=== PATIENT | male | born 1955 | race Caucasian/White ===

== ENCOUNTER 2020-12-27 15:55 | Outpatient (REF) | payer MEDICAID, SELFPAY ==
[2020-12-29 14:11] LABS: COVID-19 RT-PCR UVMMC Result Negative (Negative)
== END 2020-12-27 15:56 | disposition home or self-care (01) ==
LOC: LBN 15:55
PROVIDERS: PCP Nurse Practitioner Family; Visit Provider Physician Assistant
DX: Z20.822 Contact with and (suspected) exposure to COVID-19 (principal)
CPT/HCPCS: U0003

== ENCOUNTER 2022-01-06 01:39 | Outpatient (CLI) | payer MEDICAID, SELFPAY ==
--- OUTSIDE RECORDS SUMMARY | 2022-01-06 01:46 | XMS_ITS | Encounter Summary ---
:1955 Author Organization [facility] [place] [address] Care Team Providers Name Role Phone Theo Lopez MD Primary Care Provider Reason for Visit Reason Onset Date Comments Medication Problem 06/28/2015 Encounter Details Date Type Department Care Team Description 06/28/2015 Telephone Cardiology Bettie Tierney MD Medication Problem [facility] [place] [phone] GENERAL INTERNAL [phone] MEDICINE [place], [place] [address] (Wo rk) Social History Tobacco Use Types Packs/Day Years Used Date Passive Smoke Exposure - Never Smoker Alcohol Use Standard Drinks/Week Comments Not Asked 0 (1 standard drink = 0.6 oz pure alcoho l) Sex Assigned at Date Recorded Not on file documented as of this encounter Miscellaneous Notes Telephone Encounter - Bettie Tierney I - 06/28/2015 4:33 PM EDT Called Jose M to tell him to take loading dose (180mg) of ticagrelor tomorrow morning and then continue with 90 mg starting that evening. He agreed and expressed understanding. BETTIE TIERNEY MD Cardiology S2, Pager #[phone] 06/28/2015 documented in this encounter Plan of Treatment Not on filedocumented as of this encounter Visit Diagnoses Not on filedocumented in this encounter Care Teams Consulting Psychologist Relationship Specialty Start Date End Date Theo Lopez MD PCP - General General Internal Medicine 06/27/15 documented as of this encounter
--- OUTSIDE RECORDS SUMMARY | 2022-01-06 01:46 | XMS_ITS | Clinical Summary ---
:1955 Author Organization [place] [address] Care Team Providers Name Role Phone Unknown Primary Care Provider Unavailable Allergies No known active allergies Medications Medication Sig Dispensed Refills Start Date End Date Status aspirin 81 mg Tablet, Take 1 tablet by 30 tablet 3 06/28/2015 Active Delayed Release (E.C.) mouth daily. atorvastatin (LIPITOR) Take 1 tablet by 30 tablet 3 06/28/2015 Active 80 mg Tablet mouth every evening. lisinopril Take 1 tablet by 30 tablet 3 06/28/2015 A ctive (PRINIVIL;ZESTRIL) 10 mouth daily. mg Tablet meTOPROLOL succinate Take 1 tablet by 30 tablet 3 06/28/2015 Active (TOPROL-XL) 100 mg mouth daily. Tablet Sustained Release [address] 1 tablet 90 tablet 3 06/28/2015 Active (NITROSTAT) 0.4 mg under the tongue Tablet, Sublingual every 5 minutes as needed for Chest pain. ticagrelor (BRILINTA) Take 1 tablet by 60 tablet 3 06/28/2015 Active 90 mg Tablet mouth 2 times daily. Active Problems Problem Noted Date STEMI (ST elevation myocardial infarction) 06/26/2015 Seborrheic keratosis 08/02/2012 Solar lentigo 08/02/2012 Social History Tobacco Use Types Packs/Day Years Used Date Passive Smoke Exposure - Never Smoker Tobacco Cessation: Counseling Given: No Alcohol Use Standard Drinks/Week Comments Not Asked 0 (1 standard drink = 0.6 oz pure alcoho l) Sex Assigned at Date Recorded Not on file Last Filed Vital Signs Vital Sign Reading Time Taken Comments Blood Pressure 114/82 06/28/2015 11:30 AM EDT Pulse 74 06/28/2015 11:30 AM EDT Temperature 36.7 ??C (98.1 ??F) 06/28/2015 11:30 AM EDT Respiratory Rate 18 06/28/2015 11:30 AM EDT Oxygen Saturation 96% 06/28/2015 11:30 AM EDT Inhaled Oxygen Concentration - - Weight 105.7 kg (233 lb 0.4 oz) 06/28/2015 5:00 AM EDT Height 193 cm (6' 4) 06/26/2015 5:00 AM EDT Body Mass Index 28.36 06/26/2015 5:00 AM EDT Plan of Treatment Health Maintenance Due Date Last Done Comments Covid-19 Vaccine (#1) 1962 HIV screen 11/06/1975 Hepatitis C Screening 11/06/1975 Tdap adult 1976 Tetanus vaccine 1976 Colonoscopy 2002 Zoster vaccine (1 of 2) 11/06/2007 Advance Directive 2012 Influenza (Flu) vaccine (1 of 1 - Influenza standard 12/01/2021 series) Insurance Payer Benefit Plan / Subscriber ID Effective Dates Phone Addre ss Type Group [place] [facility] [id number] 2015-[place] [phone] [address] [place] [address] Advance Directives Latest Code Status on File Code Status Date Activated Date Inactivated Comments Full Code 06/26/2015 5:08 AM 06/28/2015 5:25 PM Does patient have capacity to make decision: Yes Care Teams Risk Management Consultant Relationship Specialty Start Date End Date Unknown PCP - General 04/02/19 None
--- OUTSIDE RECORDS SUMMARY | 2022-01-06 01:47 | XMS_ITS | Encounter Summary ---
:1955 Author Organization [facility] [place] [address] Care Team Providers Name Role Phone Yara Gomez MD Primary Care Provider Reason for Visit Auth/Cert - Closed Specialty Diagnoses / Procedures Referred By Contact Refer red To Contact Diagnoses AIRO Procedures [employer] Referral ID Status Reason Start Date Expiration Date Visits Requ ested Visits Authorized [id number] Closed 1 1 Encounter Details Date Type Department Care Team Description 06/26/2015 [facility] (STEMI) [facility] [address] [place], [place] CARDIOLOGY DEPT [address] [place], [place] [phone] [id number] Social History Tobacco Use Types Packs/Day Years Used Date Passive Smoke Exposure - Never Smoker Alcohol Use Standard Drinks/Week Comments Not Asked 0 (1 standard drink = 0.6 oz pure alcoho l) Sex Assigned at Date Recorded Not on file documented as of this encounter Medications at Time of Discharge Medication Sig Dispensed Refills Start Date End Date aspirin 81 mg Tablet, Take 1 tablet by 30 tablet 3 06/28/19 16 Delayed Release (E.C.) mouth daily. atorvastatin (LIPITOR) 80 Take 1 tablet by 30 tablet 3 06/01 mg Tablet mouth every evening. lisinopril Take 1 tablet by 30 tablet 3 06/28/2015 (PRINIVIL;ZESTRIL) 10 mg mouth daily. Tablet meTOPROLOL succinate Take 1 tablet by 30 tablet 3 6 (TOPROL-XL) 100 mg Tablet mouth daily. Sustained Release 24 hr nitroGLYcerin (NITROSTAT) Place 1 tablet under 90 tablet 3 06/28/2015 0.4 mg Tablet, Sublingual the tongue every 5 minutes as needed for Chest pain. ticagrelor (BRILINTA) 90 mg Take 1 tablet by 60 tablet 3 Tablet mouth 2 times daily. documented as of this encounter Plan of Treatment Not on filedocumented as of this encounter Visit Diagnoses Diagnosis ST elevation myocardial infarction (STEM I) of inferior wall Acute myocardial infarction of other inf erior wall, episode of care unspecified documented in this encounter Care Teams Senior Manufacturing Test Engineer Relationship Specialty Start Date End Date Yara Gomez MD PCP - General 12/31/12 06/26/[address] [place] [address] documented as of this encounter
--- OUTSIDE RECORDS SUMMARY | 2022-01-06 01:47 | XMS_ITS | Clinical Summary ---
:1955 Demographics Home Phone Preferred Language Unknown Marital Status Unknown Latter-Day Affiliation Unknown Race Unknown Ethnic Group Unknown Author Organization [facility] Address [address] [place] [address] Care Team Providers Name Role Phone Unavailable Primary Care Provider Unavailable Social History Tobacco Use Types Packs/Day Years Used Date Never Assessed Sex Assigned at Date Recorded Not on file Plan of Treatment Not on file
--- OUTSIDE RECORDS SUMMARY | 2022-01-06 01:47 | XMS_ITS | Encounter Summary ---
:1955 Demographics Home Phone Preferred Language Unknown Marital Status Unknown Adventism Affiliation Unknown Race Unknown Ethnic Group Unknown Author Organization [facility] Address [address] [place] [address] Care Team Providers Name Role Phone Unavailable Primary Care Provider Unavailable Encounter Details Date Type Department Care Team Description 12/28/2020 Lab Requisition [facility] Outr Resulting Lab, Pathology & Laboratory Provider [facility] [address] [place] [address] Social History Tobacco Use Types Packs/Day Years Used Date Never Assessed Sex Assigned at Date Recorded Not on file documented as of this encounter Plan of Treatment Not on filedocumented as of this encounter Procedures Procedure Name Priority Date/Time Associated Diagnosis Comme nts COVID-19 TEST [facility] Today 12/27/2020 15:00 LAB PCR EDT COVID-19 TESTING Routine 12/27/2020 15:00 Results for this EDT procedure are i n the results section. documented in this encounter Results COVID-19 TEST [facility] PCR (12/27/2020 15:00 EDT) Specimen Swab - Entire nasopharynx (body structur e) Performing Organization Address City/State/ZIP Code Phon e Number [facility] [address] [place] [address] SERVICES COVID-19 TESTING (12/27/2020 15:00 EDT) COVID-19 rt-PCR Negative Negative [facility] Result Comment: [facility] This test has not been FDA c leared or approved. This test has been authorized by FDA under an EUA for use by authorized laboratories. This test has been authorized only for detection of nucleic acid fro SERVICES m 2019-nCoV, not for any oth er viruses or pathogens. This test is only authorized for the duration of the declaration that circumstances exist justifying the authorization of emergency use of in vitro d iagnostic tests for detectio n and/or diagnosis of 2019-nCoV under section 564(b)(1) of Act, 21 U.S.C ?? 360bbb-3(b) (1), unless the authorization is terminated or revoked sooner. Negative results do not prec lude 2019-nCoV infection and should not be used as the sole basis for treatment or other patient management decisions. Negative results must be combined with clinical observa tions, patient history, and epidemiological informatio n. This test was developed and its performance characteristics determined by [facility]. It has not been cleared or approved by the US Food and Drug Administration. FDA does not require this test to go through premarket FDA review. This t est is used for clinical purposes. It should not be regarded as investigational or for research. This laboratory is certified under the Clinical Laboratory Improvement Amendm ents (CLIA) as qualified to perform high complexity clinical laboratory testing. This test is based on the CD C COVID-19 Emergency Use Authorization (EUA) assay, with minor modification as defined by the FDA Performed on the tab ticketbrokero 7 Pro RT-PCR System. Performing Lab [facility] SERVICES Specimen Swab Performing Organization Address City/State/ZIP Code Phon e Number [facility] [address] [place] [address] SERVICES documented in this encounter Visit Diagnoses Not on filedocumented in this encounter
--- OUTSIDE RECORDS SUMMARY | 2022-01-06 01:47 | XMS_ITS | Encounter Summary ---
:1955 Author Organization [facility] Address [facility] [place] [address] Care Team Providers Name Role Phone Yara Gomez MD Primary Care Provider Encounter Details Date Type Department Care Team Description 06/26/2015 Telephone Cardiology [place] [facility] [place] Cordova MD [facility] [place] [phone] CARDIOLOGY [phone] [place], [place] [address] (Wo rk) Social History Tobacco Use Types Packs/Day Years Used Date Passive Smoke Exposure - Never Smoker Alcohol Use Standard Drinks/Week Comments Not Asked 0 (1 standard drink = 0.6 oz pure alcoho l) Sex Assigned at Date Recorded Not on file documented as of this encounter Miscellaneous Notes Telephone Encounter - Zach Cordova - 06/26/2015 3:08 AM EDT ECGs reviewed, which KERRI in II, III, and aVR with depression in V2 indicative of inferoposterior IN.Patient has inferior Qs as well as a relatively tall R wave in V2. No RV involvement per right-sidedleads. Initial TnI elevated at 1.79. Due to evidence of late presentation, hemodynamic stability with markedly improved chest pain, and availability of rapid transport by [facility], decision to defer lytics made after discussion with Dr. Proctor. Zach Cordova MD Pager [phone] [employer]oth Mercerizing Supervisor documented in this encounter Plan of Treatment Not on filedocumented as of this encounter Visit Diagnoses Not on filedocumented in this encounter Care Teams Project Development Leader Relationship Specialty Start Date End Date Yara Gomez MD PCP - General 12/31/12 06/26/15 [address] [place] [address] documented as of this encounter
--- OUTSIDE RECORDS SUMMARY | 2022-01-06 01:47 | XMS_ITS | Encounter Summary ---
:1955 [place] [address] Care Team Providers Name Role Phone Yara Gomez MD Primary Care Provider Reason for Visit Auth/Cert - Closed Specialty Diagnoses / Procedures Referred By Contact Refer red To Contact Diagnoses STEMI (ST elevation myocardial infarction) STEMI stemi Procedures CARDIAC CATHETERIZATION Referral ID Status Reason Start Date Expiration Date Visits Requ ested Visits Authorized [id number] Closed 1 1 Encounter Details Date Type Department Care Team Description 06/26/2015 Surgery Heel Splitter Yoan Fuentes CARDIAC CATHETERIZATION [facility] [address] [facility] [place] [address] [place] [address] [phone] (Wo rk) Social History Tobacco Use Types Packs/Day Years Used Date Passive Smoke Exposure - Never Smoker Tobacco Cessation: Counseling Given: No Alcohol Use Standard Drinks/Week Comments Not Asked 0 (1 standard drink = 0.6 oz pure alcoho l) Sex Assigned at Date Recorded Not on file documented as of this encounter Last Filed Vital Signs Vital Sign Reading [...] Mass Index 28.36 06/26/2015 5:00 AM EDT documented in this encounter Discharge Summaries Frankie Gregorio MD - 06/26/2015 12:58 PM EDT Discharge Summary Patient Name: Jose M Garibay Patient Age: 59 y.o. Language: Sierra Leonean Race: White Ethnicity: Not nor Admit date: 06/26/2015 Discharge date and time: 06/28/2015 Attending Physician: No att. providers found Discharge Physician: Frankie Gregorio MD Follow-up Recommendations for Providers: 1. Please ensure patient is taking all of his new cardiac medications, including: Aspirin, ticagrelor, atorvastatin, lisinopril, and metoprolol. 2. Please evaluate for signs of new heart failure (dyspnea, lower extremity edema, etc.) 3. Please follow up on impaired fasting glucose (hemoglobin A1c of 5.7%). Inpatient Provider Contact Information: For questions regarding this document or issues relating to this hospitalization on the Medical Service, please contact your inpatient physician through the [facility] [employer] . Issues after hours and on weekends will be handled by the Hospitalist staff on-call. Discharge Diagnoses (Hospital Problems) and Secondary Diagnoses (Chronic Problems): Active Hospital Problems Diagnosis ??? STEMI (ST elevation myocardial infarction) Resolved Hospital Problems Diagnosis Date Resolved No resolved problems to display. Active Non-Hospital Problems Diagnosis ??? Seborrheic keratosis ??? Solar lentigo Operations/Major Procedures: Cardiac Catheterization (06/26/15): Dominance: Right ?? Conclusions:? * One vessel coronary artery disease (RCA)? * Successful thrombectomy and stent insertion of the mid KELLEN Cont lesion? * Successful thrombectomy and stent insertion of the distal RCA lesion? * Drug eluting stent (LILLIAN) implanted.?? LVEDP 26 Other Major Procedures: None. History of Presentation: Extracted from H&P dated 06/26/15 59yo M with a hx of HTN (not on meds) who presents with a STEMI. He developed back pain last night at 10pm while sitting at his computer. At its worst, it was 5/10. He then developed bilateral hand numbness, 4/10 chest pain, and diaphoresis. He reports a twinge of similar back pain a week ago, but other than that, he has not had similar pain before. He called an ambulance and was taken to [facility], where an ECG showed inferior ST elevations with Q waves in lead III. His pain improved but did not totally resolve with NTG. No lytics were given, but he did get aspirin 324mg, Plavix 300mg, and heparin. He was transferred here via [facility]. In the dental laboratory technician here, he received 3 stents (2 LILLIAN, 1 BMS) to the RCA. He currently reports heartburn that is very different than his initial pain. There might still be a twinge of chest pain, too, but it is very mild, 1/10, if present at all. He denies leg pain, groin pain, dyspnea, diaphoresis, numbness, or tingling. Review of Systems (positives bold): CONSTITUTIONAL: appetite changes, fatigue, fevers, chills, weight changes ?? HEENT: visual changes, oral irritation, dysphagia RESPIRATORY: coughing, wheezing, shortness of breath CARDIOVASCULAR: chest pain now almost totally gone, exertional dyspnea, paroxysmal nocturnal dyspnea, orthopnea, palpitations, leg swelling, calf cramping GI: heartburn, abdominal pain, nausea, vomiting, diarrhea, constipation, blood in stool : dysuria, urgency, frequency, hematuria SKIN: rashes, lesions ?? MUSCULOSKELETAL: arthralgia, myalgia ?? NEURO: headaches, dizziness, lightheadedness, speech abnormalities HEMATOLOGY: easy bruising Hospital Course: Mr. Garibay was admitted to the cardiology service for management of a inferior STEMI. Cardiac catheterization revealed distal RCA occlusion. In total two drug eluding stents and one bare mental stent were placed (distal RCA and mid KELLEN continuation). An echocardiogram was notable for a preserved ejection fraction of 55%, with a wall motion abnormality in the inferior wall.. The patient recovered well; he did not develop any malignant arrhythmias or other significant complications of his PR. Jose M was treated with aspirin 81mg daily, clopidogrel 75mg daily, metoprolol succinate 100mg daily, lisinopril 10mg daily, and atorvastatin 80mg daily during his hospitalization. At the time of discharge his clopidogrel was changed to the more potent ticagrelor after we verified it would be covered by his insurance (this is to start on AM of 06/29/15 with load of ticagrelor 180mg that morning followed by90mg BID). The patient was chest pain free at the time of discharge. Vital Signs at Discharge: BP: 114/82 mmHg, Heart Rate: 74, Temp: 36.7 ??C (98.1 ??F), Resp: 18, BMI (Calculated): 28.8 Height: (!) 193 cm (6' 4) (06/26/15 0500) Weight - Scale: (!) 105.7 kg (233 lb 0.4 oz) (06/28/15 0500) Functional and Cognitive Status: At baseline. Important Studies and Lab Data: Labs: CBC: Recent Labs 06/28/15 0411 06/27/15 0336 06/26/15 0550 WBC 10.9* 10.2* 10.4* HGB 15.2 15.3 14.3 PLATELET 198 207 211 BMP: Recent Labs 06/28/15 0411 06/27/15 0336 06/26/15 0530 NA 140 140 141 K 4.2 3.9 3.6 CL 104 105 107 CO2 22 21* 19* BUN 13 11 9* CREATININE 0.99 1.00 0.85 GLUCOSE 88 -- 108 Calcium, Magnesium, Phosphate: Recent Labs 06/28/15 0411 06/27/15 0336 06/26/15 0530 CALCIUM 8.6 8.5 7.1* MAGNESIUM -- 0.85 0.64* Troponin: Recent Labs 06/27/15 0336 06/26/15 2007 06/26/15 1220 TROPONINT 2.21* 2.80* 4.52* CK 708* 1018* 1472* Studies: Cardiac Catheterization (06/26/15): Dominance: Right ?? Conclusions:? * One vessel coronary artery disease (RCA)? * Successful thrombectomy and stent insertion of the mid KELLEN Cont lesion? * Successful thrombectomy and stent insertion of the distal RCA lesion? * Drug eluting stent (LILLIAN) implanted.?? LVEDP 26 Other Major Procedures: None. Transthoracic Echocardiogram (06/26/15): SUMMARY: 1. Technically limited study despite the use of contrast. ?? 2. The left ventricular chamber size is normal. Left ventricular wall thickness is normal. There is normal global left ventricular systolic function.?? Ejection fraction is estimated to be 55%. There are left ventricular segmental wall motion abnormalities present, as shown in the diagram below. Doppler assessment is consistent with normal left sided filling pressure. ?? 3. Right ventricular chamber size, wall thickness, and systolic function are within normal limits. Pulmonary artery pressures could not be assessed due to inadequate tricuspid regurgitation jet. ?? 4. There is no hemodynamically significant valvular disease. ?? 5. See remainder of report for additional findings. EKG (06/26/15): Normal sinus rhythm. Inferior infarct with 2mm ST elevations. ?? Chest XR (06/26/15): FINDINGS: ?? Lungs remain clear. No pleural effusion. Normal size of the heart and width of the mediastinum. Mildprominence of the central pulmonary vessels is compatible with mild pulmonary vascular congestion, but no overt edema. Pending Studies and Lab Data: None. Discharge Conditions/Prognosis: Stable. Discharge to: Home. Updated Allergies/ADRs: No Known Allergies Immunizations Given this Hospitalization: There is no immunization history for the selected administration types on file for this patient. Discharge Medications: Your Medications New Medications Dose Details aspirin 81 mg Tbec Take 1 tablet by mouth daily. 81 mg Quantity: 30 tablet Refills: 3 atorvastatin 80 mg Tab Commonly known as: LIPITOR Take 1 tablet by mouth every evening. 80 mg Quantity: 30 tablet Refills: 3 lisinopril 10 mg Tab Commonly known as: PRINIVIL;ZESTRIL Take 1 tablet by mouth daily. 10 mg Quantity: 30 tablet Refills: 3 meTOPROLOL succinate 100 mg Tablet sr Commonly known as: TOPROL-XL Take 1 tablet by mouth daily. 100 mg Quantity: 30 tablet Refills: 3 nitroGLYcerin 0.4 mg Subl Commonly known as: NITROSTAT Place 1 tablet under the tongue every 5 minutes as needed for Chest pain. 0.4 mg Quantity: 90 tablet Refills: 3 ticagrelor 90 mg Tab Commonly known as: BRILINTA Take 1 tablet by mouth 2 times daily. 90 mg Quantity: 60 tablet Refills: 3 Smoking Status at Discharge: History Smoking status ??? Passive Smoke Exposure - Never Smoker Smokeless tobacco ??? Not on file Instructions Given to Patient at Discharge: Patient Instructions Why you were hospitalized: You had a heart attack. You had 3 stents placed in the vessels in your heart to keep them open. Discharge Instructions: You had a cardiac catheterization. This means that you shouldn't lift anything greater than 7 lbs for the next week and nothing greater than 20 lbs for 2 weeks. After that time you may go back to regular activity and work. Call your doctor if your right groin pain gets worse, or you develop swelling or redness in that area. Also, call your doctor if you develop sudden chest pain or shortness of breath, especially chest pain that does not go away with nitroglycerin. It is important that you take your aspirin 81mg daily forever and ticagralor 90mg twice daily for 1 year to avoid forming a blood clot in these stents, which could be deadly. New Medications: Aspirin 81mg daily Atorvastatin 80mg daily Lisinopril 10mg daily Metoprolol succinate 100mg daily Ticagrelor 90mg twice daily Medication Changes: None. Diet: Please consume a healthy diet low in cholesterol Other Instructions: You must always avoid NSAID medications (Ex: Advil, Aleve, Ibuprofen, Motrin) as these can interact with the aspirin you will be taking Call your doctor if: Chest pain, shortness of breath, pain or swelling in legs occurs, or for other concerning symptoms. Follow up Appointments: KAVON LEACH MD [phone] Future Appointments and Orders Future Orders Complete By Expires Referral to Cardiac Rehab [[id number] Custom] As directed Process Instructions: If no progress note charted, please enter Clinical details in comments. Scheduling Instructions: Questions: My question or request is: STEMI. Cardiac rehab at [facility] Cardiology Follow Up Appointment: At [facility] with Dr. Alvarez at 9:30AM on July 22 Primary Care Follow Up Appointment: June 30 at 2:00 PM Your Inpatient Doctors: Attending: Dr. Frankie Medeiros MD Fellow: Dr. Neto Robledo MD Resident: Dr. Bettie Tierney MD Shactor Helper: Dr. Jeffery De La Cruz MD General Instructions None Future Appointments and Orders Future Orders Complete By Expires Referral to Cardiac Rehab [[id number] Custom] As directed Process Instructions: If no progress note charted, please enter Clinical details in comments. Scheduling Instructions: Questions: My question or request is: STEMI. Cardiac rehab at [facility] Discharge References/Attachments None documented in this encounter Discharge Instructions Patient InstructionsJeffery De La Cruz M - 06/28/2015 11:26 AM EDT Why you were hospitalized: You had a heart attack. You had 3 stents placed in the vessels in your heart to keep them open. Discharge Instructions: You had a cardiac catheterization. This means that you shouldn't lift anything greater than 7 lbs for the next week and nothing greater than 20 lbs for 2 weeks. After that time you may go back to regular activity and work. Call your doctor if your right groin pain gets worse, or you develop swelling or redness in that area. Also, call your doctor if you develop sudden chest pain or shortness of breath, especially chest pain that does not go away with nitroglycerin. It is important that you take your aspirin 81mg daily forever and ticagralor 90mg twice daily for 1 year to avoid forming a blood clot in these stents, which could be deadly. New Medications: Aspirin 81mg daily Atorvastatin 80mg daily Lisinopril 10mg daily Metoprolol succinate 100mg daily Ticagrelor 90mg twice daily Medication Changes: None. Diet: Please consume a healthy diet low in cholesterol Other Instructions: You must always avoid NSAID medications (Ex: Advil, Aleve, Ibuprofen, Motrin) as these can interact with the aspirin you will be taking Call your doctor if: Chest pain, shortness of breath, pain or swelling in legs occurs, or for other concerning symptoms. Follow up Appointments: KAVON LEACH MD [phone] Future Appointments and Orders Future Orders Complete By Expires Referral to Cardiac Rehab [[id number] Custom] As directed Process Instructions: If no progress note charted, please enter Clinical details in comments. Scheduling Instructions: Questions: My question or request is: STEMI. Cardiac rehab at [facility] Cardiology Follow Up Appointment: At [facility] with Dr. Alvarez at 9:30AM on July 22 Primary Care Follow Up Appointment: June 30 at 2:00 PM Your Inpatient Doctors: Attending: Dr. Frankie Medeiros MD Fellow: Dr. Neto Robledo MD Resident: Dr. Bettie Tierney MD Shactor Helper: Dr. Jeffery De La Cruz MD documented in this encounter Medications at Time of Discharge [...] times daily. documented as of this encounter Progress Notes Adelaida Villanueva RN - 06/28/2015 10:43 AM EDT Office of Care Management (OCM) / Mold Maker(CM)/ Initial Assessment Discussed patient with Provider Team and in multidisciplinary discharge-planning rounds. Reviewed record and interviewed patient. Introduced/reviewed CM role and services accepted. REASON for HOSPITALIZATION: 59 y.o. male with HTN who is admitted to [facility] for management of an inferior STEMI PMH : please refer to H&P PREVIOUS FUNCTIONAL STATUS: independent with activity, cognitively intact CURRENT FUNCTIONAL STATUS: independent with activity, cognitively intact SOCIAL / FAMILY SUPPORTS: lives with his 89-year old mother who is able to help with cooking and hissister lives nearby and is very supportive; he does have 3 steps to enter his home and about 15 steps once inside ADVANCE DIRECTIVES: Encouraged him to consider completing his AD HEALTH /PRESCRIPTION COVERAGE: [place] Medicaid CURRENT HOME/COMMUNITY SERVICES/EQUIPMENT: DME: none Home Health Agency: none Other: [employer] REFERRAL: not needed at this time PRIMARY CARE PHYSICIAN: KAVON LEACH MD [facility] [address] [facility] [id number] POTENTIAL DISCHARGE NEEDS: none at this time ANTICIPATED BARRIERS TO DISCHARGE: none at this time TRANSPORTATION @ D/C: sister will drive him PLAN: CM will continue to monitor progress, follow for continuity of care and assist with discharge planning while hospitalized . Frankie Gregorio MD - 06/28/2015 6:31 AM EDT Cardiology Service Resident Progress Note Patient Name: Jose M Garibay Service: Cardiology - S1 Admit Date: 06/26/2015 Hospital Day: 1 Patient Description: Jose M Garibay is a 59 y.o. male with HTN who is admitted to [facility] for management of an inferior STEMI. Active Problems: # Inferior STEMI (s/p 2 LILLIAN, 1 BMS to the RCA) Subjective: Jose M states that he feels pretty good this morning. He does note that he saw several spots of dried blood in his underpants this morning. The patient notes that his last bowel movement was at approximately 2000 last night, which did require straining. He also also previously been told that he has hemorrhoids. Jose M does not describe any chest pain/pressure or shortness of breath this morning. Major 24 Hour Events: - No acute events Objective: Vitals: T Temp: [36.4 ??C (97.5 ??F)-36.9 ??C (98.4 ??F)] HR Heart Rate: [67-79] BP BP: (115-141)/(75-93) RR Resp: [12-25] SpO2 SpO2: [97 %-99 %] 06/25 0701 - 06/26 0700 In: 1910.5 [P.O.:1450; I.V.:460.5] Out: 1301 [Urine:1300] Wt Last (!) 105.8 kg (233 lb 4 oz) Admit 107 kg Physical Exam: GEN Very pleasant gentleman, resting in bed, alert and oriented, in NAD HEENT Conjunctiva are anicteric and without injection, oropharynx clear, moist mucus membranes CV RRR, normal S1/S2, no murmurs/rubs/gallops appreciated, radial pulses easily palpabe PULM Normal respiratory effort, clear to auscultation bilaterally, no wheezes or crackles appreciated GI Abdomen soft, non-tender, non-distended, + bowel sounds, no guarding, no rebound MSK No peripheral edema appreciated. DERM Skin warm and dry. No rashes appreciated. NEURO General/Mental Status: Alert and oriented Cranial Nerves: EOMI Labs: CBC: Recent Labs 06/27/15 0336 06/26/15 0550 WBC 10.2* 10.4* HGB 15.3 14.3 PLATELET 207 211 BMP: Recent Labs 06/27/15 0336 06/26/15 0530 NA 140 141 K 3.9 3.6 CL 105 107 CO2 21* 19* BUN 11 9* CREATININE 1.00 0.85 GLUCOSE -- 108 Calcium, Magnesium, Phosphate: Recent Labs 06/27/15 0336 06/26/15 0530 CALCIUM 8.5 7.1* MAGNESIUM 0.85 0.64* Troponin: Recent Labs 06/27/15 03306/26/15200606/26/15 1220 TROPONINT 2.21* 2.80* 4.52* CK 708* 1018* 1472* Micro: None. Radiology/Studies: EKG (06/27/15): NSR, inferior q waves and inverted T waves ?? Transthoracic Echocardiogram (06/26/15):?? 1. Technically limited study despite the use of contrast. ?? 2. The left ventricular chamber size is normal. Left ventricular wall thickness is normal. There is normal global left ventricular systolic Function. Ejection fraction is estimated to be 55%. There are left ventricular segmental wall motion abnormalities present, as shown in the diagram below. Doppler assessment is consistent with normal left sided filling pressure. ?? 3. Right ventricular chamber size, wall thickness, and systolic function are within normal limits. Pulmonary artery pressures could not be assessed due to inadequate tricuspid regurgitation jet. ?? 4. There is no hemodynamically significant valvular disease. ?? 5. See remainder of report for additional findings. Cardiac Catheterization (06/26/15): Dominance: Right ?? Conclusions:? * One vessel coronary artery disease (RCA)? * Successful thrombectomy and stent insertion of the mid KELLEN Cont lesion? * Successful thrombectomy and stent insertion of the distal RCA lesion? * Drug eluting stent (LILLIAN) implanted.?? LVEDP 26 Assessment and Plan Jose M Garibay is a 59 y.o. male with HTN who is admitted to [facility] for management of an inferiorSTEMI with 100% occlusion of the RCA. The patient is now s/p cardiac catheterization with 2 drug eluding stents and 1 bare metal stent placed in the RCA. The patient has been recovering well with no major complications. # Inferior STEMI: S/p two LILLIAN's and one BMS to the RCA. EF 55%. Recovering well. - Aspirin 81mg daily - Clopidogrel 75mg daily - Will transition from metoprolol tartrate 25mg PO q6hrs to metoprolol succinate 100mg daily - Lisinopril 10mg PO daily - Atorvastatin 5mg PO daily # Likely hemorrhoidal bleeding: The patient has previously been told that he has hemorrhoids. The drops of blood in the patient's underwear after straining are consistent with hemorrhoidal bleeding. Heis hemodynamically stable with a stable hemoglobin. - Continue to monitor # Chronic Medical Conditions: *GERD: TUMS PRN # Other: - Prophylaxis: GI: Not indicated DVT: Regular ambulation Glycemic control: Not indicated - Nutrition: Daily Healthy Menu Choices/Cardiac diet ([facility]-Diet) - Code Status: Full Code - Disposition: Possible discharge this afternoon. Patient will need outpatient cardiology follow up JEFFERY DE LA CRUZ MD 06/27/2015 Internal Medicine, PGY 1 Cardiology S1 Pager: [phone] Cardiology Staff Discharge Day Notation: I interviewed and examined the patient as part of the attending rounds process today. I personally reviewed the overnight events, medications, supplemental laboratory data and plan for discharge. The patient was updated on the acute cardiovascular problems that were addressed during the admission and the plan for follow up care. I spent >30 minutes to accomplish the above tasks. 59 yo M with HTN, prior smoking, and family history of premature CAD -- transferred from outside hospital for inferior STEMI.?? Possibly late presenting (had Q waves on initial EKG, initial troponin here was markedly elevated).?? Went directly to dental laboratory technician and had PCI to RCA (coronary angiogram films reviewed, complex case with large thrombus burden). Echocardiogram here showed normal LVEF with inferior WMA. He continues to be chest pain-free. His troponins have peaked. He has been hemodynamically stable. No concerning arrhythmias on telemetry. We have initiated GDMT for CAD in a post STEMI patient. We would like to find out if his prescription plan we'll cover the tricagrolor, in which case we might switch the Plavix to Ticagrelor prior to discharge. Possible DC later today. Full details provided in the DC summary document. FRANKIE GREGORIO MD Staff Tobacco Roller Frankie Gregorio MD - 06/27/2015 6:21 AM EDT Inpatient Cardiology Progress Note Patient: Jose M [facility] 1 day Active Problems: 59yo M with a hx of HTN (not on meds) who presented with a inferior STEMI. He received 3 stents (2 LILLIAN, 1 BMS) to the RCA. 24 hour Events/Subjective: - No acute events o/n, feeling well with no complaints - Denies F/C, N/V, DALE, CP, SOB, abd pain,D/C, pain/edema - had 2 seconds of CP o/n but resolved on its own - TTE revealing EF 55%, LVEDP 26 on cath - CXR with mild pulmonary edema Physical Examination: Vitals: Last value Range last 24 hrs Temperature Temp: 36.6 ??C (97.9 ??F) Temp: [36.4 ??C (97.5 ??F)-36.9 ??C (98.4 ??F)] Heart Rate Heart Rate: 72 Heart Rate: [67-81] Blood Pressure BP: 115/75 mmHg BP: (115-141)/(75-93) Respiratory Rate Resp: 18 Resp: [12-25] SpO2 SpO2: 97 % SpO2: [97 %-99 %] Intake/Output Summary (Last 24 hours) at 06/27/15 1410 Last data filed at 06/27/15 1156 Gross per 24 hour Intake 1510 ml Output 1826 ml Net -316 ml Patient Vitals for the past 168 hrs: Weight 06/27/15 0641 (!) 105.8 kg (233 lb 4 oz) 06/26/15 0500 (!) 107 kg (235 lb 14.3 oz) Laboratory: Recent Labs 06/27/15 0336 06/26/15 0550 WBC 10.2* 10.4* HGB 15.3 14.3 PLATELET 207 211 Recent Labs 06/27/15 0336 06/26/15 0530 NA 140 141 K 3.9 3.6 CL 105 107 CO2 21* 19* BUN 11 9* CREATININE 1.00 0.85 Recent Labs 06/27/15 0336 06/26/15 0530 CALCIUM 8.5 7.1* MAGNESIUM 0.85 0.64* Recent Labs 06/27/15 0336 06/26/15200606/26/15 1220 CK 708* 1018* 1472* TROPONINT 2.21* 2.80* 4.52* Recent Labs 06/27/15 033 HA1C 5.7* Lipid Panel Lab Results Component Value Date CHLPL 154 06/27/2015 HDL 29* 06/27/2015 CHOLHDL 5.3 06/27/2015 TRIG 111 06/27/2015 LDLDIRECT 110* 06/27/2015 Diagnostics: EKG 06/27/15: NSR, inferior q waves and inverted T waves Echo 06/26/15:?? 1. Technically limited study despite the use of contrast. ?? 2. The left ventricular chamber size is normal. Left ventricular wall thickness is normal. There is normal global left ventricular systolic Function. Ejection fraction is estimated to be 55%. There are left ventricular segmental wall motion abnormalities present, as shown in the diagram below. Doppler assessment is consistent with normal left sided filling pressure. ?? 3. Right ventricular chamber size, wall thickness, and systolic function are within normal limits. Pulmonary artery pressures could not be assessed due to inadequate tricuspid regurgitation jet. ?? 4. There is no hemodynamically significant valvular disease. ?? 5. See remainder of report for additional findings. Cardiac Catheterization (06/26/15): Dominance: Right Conclusions:? * One vessel coronary artery disease (RCA)? * Successful thrombectomy and stent insertion of the mid KELLEN Cont lesion? * Successful thrombectomy and stent insertion of the distal RCA lesion? * Drug eluting stent (LILLIAN) implanted.?? LVEDP 26 CXR (06/27/15): mild pulmonary edema MEDICATIONS: Continuous Infusions: Scheduled Meds: ??? aspirin 81 mg Oral Daily ??? clopidogrel 75 mg Oral Daily ??? atorvastatin 80 mg Oral QPM ??? lisinopril 10 mg Oral Daily ??? meTOPROLOL 25 mg Oral Q6H NATHAN PRN Meds:.nitroGLYcerin, lidocaine, calcium carbonate, acetaminophen, flu vacc (5-64 yrs) (PF) Cath: 100% occlusion of the RCA s/p 2 LILLIAN's and a BMS Assessment/Plan: 59yo M with little PMH presents with inferior STEMI with 100% occlusion of RCA. He is now s/p cath with 2 LILLIAN's and a BMS to the RCA. He is currently doing well post cath without CP, SOB, edema. CE's are trending down and post cath EKG shows resolution of APPLE. Plan: # Inferior STEMI - aspirin 81mg PO daily - Plavix 75mg PO daily, will consider switching to ticagrelor if his insurance can cover it - metoprolol 12.5mg PO q6h with hold parameters - lisinopril 5mg PO daily - atorvastatin 80mg PO daily - TTE showing EF 55% - chest pain protocol - trend troponins to peak - daily ECG - cardiac rehab Diet: cardiac Prophylaxis: will start if not ambulatory within 24 hours Access: peripheral Dispo: can transfer to floor today, likely home parisa Code = FULL BETTIE TIERNEY MD, PGY-2 Cardiology S1, Pager [phone] 06/27/2015 CARDIOLOGY STAFF ADDENDUM I have personally interviewed and examined the patient and reviewed appropriate data, including labs, ECGs and other diagnostic studies. I agree with the principal findings documented above. The assessment and plan were formulated in discussion with me. 59 yo M with HTN, prior smoking, and family history of premature CAD -- transferred from outside hospital for inferior STEMI.?? Possibly late presenting (had Q waves on initial EKG, initial troponin here was markedly elevated).?? Went directly to dental laboratory technician and had PCI to RCA (coronary angiogram films reviewed, complex case with large thrombus burden). Echocardiogram yesterday showed normal LVEF with inferior WMA. He has been chest pain-free. His troponins have peaked. We are initiating GDMT for CAD in a post STEMI patient. We would like to find out if his prescription plan we'll cover the tricagrolor, in which case we might switch the Plavix to Ticagrelor prior to discharge. Frankie Gregorio MD, [facility] Staff Tobacco Roller, Pager [phone] Genie Terry RN - 06/26/2015 11:51 PM EDT Patient complained of a 2/10 sharp fleeting chest pain that lasted 2 seconds. S1 team notified. Willcontinue to trend CE. documented in this encounter H&P Notes Frankie Gregorio MD - 06/26/2015 4:36 AM EDT Cardiology Admission Note Chief Complaint: chest pain History of Present Illness: 59yo M with a hx of HTN (not on meds) who presents with a STEMI. He developed back pain last night at 10pm while sitting at his computer. At its worst, it was 5/10. He then developed bilateral hand numbness, 4/10 chest pain, and diaphoresis. He reports a twinge of similar back pain a week ago, but other than that, he has not had similar pain before. He called an ambulance and was taken to [facility], where an ECG showed inferior ST elevations with Q waves in lead III. His pain improved but did not totally resolve with NTG. No lytics were given, but he did get aspirin 324mg, Plavix 300mg, and heparin. Hewas transferred here via [facility]. In the dental laboratory technician here, he received 3 stents (2 LILLIAN, 1 BMS) to the RCA. He currently reports heartburn that is very different than his initial pain. There might still dany twinge of chest pain, too, but it is very mild, 1/10, if present at all. He denies leg pain, groinpain, dyspnea, diaphoresis, numbness, or tingling. Review of Systems (positives bold): CONSTITUTIONAL: appetite changes, fatigue, fevers, chills, weight changes HEENT: visual changes, oral irritation, dysphagia RESPIRATORY: coughing, wheezing, shortness of breath CARDIOVASCULAR: chest pain now almost totally gone, exertional dyspnea, paroxysmal nocturnal dyspnea, orthopnea, palpitations, leg swelling, calf cramping GI: heartburn, abdominal pain, nausea, vomiting, diarrhea, constipation, blood in stool : dysuria, urgency, frequency, hematuria SKIN: rashes, lesions MUSCULOSKELETAL: arthralgia, myalgia NEURO: headaches, dizziness, lightheadedness, speech abnormalities HEMATOLOGY: easy bruising Past Medical and Surgical History: HTN Former smoker Prior To Admission Medications: None Allergies: NKDA Family History: Father had PR in his 70's. Paternal grandfather had PR in his 50's. Social History and Habits: Toño lives alone. He smoked for a few years in his early twenties. Rare alcohol. 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 Vitals: Last Set of Vitals and range of vitals over past 24 hours: Last value Range last 24 hrs Temperature Temp: 36.9 ??C (98.4 ??F) Heart Rate Heart Rate: 71 Heart Rate: [71-83] Blood Pressure BP: (!) 148/96 mmHg BP: (148-155)/(95-99) Respiratory Rate Resp: 16 Resp: [14-16] SpO2 SpO2: 97 % SpO2: [95 %-99 %] Physical Exam: GEN: NAD, lying in bed HEENT: MMM, clear OP, anicteric sclerae, no conjunctival pallor CV: regular, no MRG, no JVD LUNGS: CTAB in anterior and lateral grimm ABDOMEN: ND, normal bowel sounds, soft, NT EXT: WWP, no edema, 2+ DP pulses GROIN: clean and dry bandage in place, no hematoma, no bruit NEURO: AOx3, clear speech, CN2-12 grossly intact, no obvious focal deficit SKIN: no rashes Laboratory: [facility] labs: WBC 15.1, hgb 15.7, plts 238 Na 140, K 3.4, Cl 104, CO2 24, BUN 13, Cr 1.1, glu 119 Mag 1.9 Troponin I 1.79 INR 1.1 ECG: Initial ECG = 2mm ST elevations in inferior leads Cath: 100% occlusion of the RCA s/p 2 LILLIAN's and a BMS Official cath report pending Assessment: 59yo M with little PMH presents with an RCA STEMI. He is now s/p cath with 2 LILLIAN's and a BMS to the RCA. He is currently doing well. His heartburn may be related to the aspirin and Plavix that he received. His mild residual chest pain may be related to very small occluded branch vessels seen on cath per report from the fellow. He is hypertensive, so he needs better double product control. Plan: Admit to cardiology. # STEMI - aspirin 81mg PO daily - Plavix 75mg PO daily - metoprolol 12.5mg PO q6h with hold parameters - lisinopril 5mg PO daily - atorvastatin 80mg PO daily - TTE ordered - chest pain protocol - trend troponins to peak - daily ECG - check lipids, A1c Diet: cardiac Fluids: none Prophylaxis: will start if not ambulatory within 24 hours Access: peripheral Dispo: pending course Code = FULL TOÑO SALINAS MD 06/26/2015 Team pager: [phone] CARDIOLOGY STAFF ADDENDUM I have personally interviewed and examined the patient and reviewed appropriate data, including labs, ECGs and other diagnostic studies. I agree with the principal findings documented above. The assessment and plan were formulated in discussion with me. 59 yo M with HTN, prior smoking, and family history of premature CAD -- transferred from outside hospital for inferior STEMI. Possibly late presenting (had Q waves on initial EKG, initial troponin herewas markedly elevated). Went directly to dental laboratory technician and had PCI to RCA (coronary angiogram films reviewed, complex case with large thrombus burden). The patient is chest pain free. Will check echo and trend cardiac biomarkers until peaked. Will begin to initiate guideline directed medical therapy. Will check on insurance coverage issues Sunday -- will consider switching plavix to ticagrelor if covered. Frankie Gregorio MD, [facility] Staff Tobacco Roller, Pager [phone] Zach Cordova Gustavo - 06/26/2015 3:55 AM EDT [facility] Brief Admission Note Mr. Garibay is a 59-year-old man with hypertension, former smoker, and family history of ASCVD (on no medications) who had chest pain starting at 2200 on 06/24. The pain began gradually as upper backpain, and progressed to involve anterior chest and bilateral arms. The patient reported a similar episode 1 week ago for a couple of hours, which had not recurred until this presentation. Vitals were normal and stable with marked improvement in chest pain and no hypotension after 4 doses of SL NTG. Presenting ECG showed sinus rhythm with APPLE in II, III, and aVR, and depression in V2 indicative of inferoposterior PR. There were inferior Qs as well as a relatively tall R wave in V2. No RV involvement per right-sided leads. Initial TnI elevated at 1.79. Due to ECG and lab evidence of late presentation, hemodynamic stability with markedly improved chest pain, and availability of rapid transport by [facility], decision to defer lytics made. The patient received ASA 324 mg, UFH bolus and drip, and 300 mg Sandie vix prior to transport. Another 300 mg Plavix was given on arrival to the dental laboratory technician. On arrival, the patient had 1/10 chest pain on 15 mcg of IV NTG. Focused cardiovascular exam was unremarkable, KillipI. Angiography showed a right dominant system with a large RCA occluded at the proximal right AV continuation. This was treated with 3 stents (2.5 x 23 LILLIAN post dilated to 3.5, 3.2 x 12 LILLIAN, and 4.5 x 16 BMS post dilated to 5.0). The left system did not have obstructive disease. LVEDP elevated at 24. Perclosed. The patient remained hemodynamically and electrically stable during the procedure, but did have mild residual chest pain. Plan: -Admit to [facility] -Telemetry monitoring -Serial cardiac biomarkers -Continue aspirin and Plavix -No Lasix for now, but low threshold for diuresis, no post-cath fluids -Check fasting lipids and initiate high-intensity statin -Initiate TYREE-I as tolerated with hold parameters; would defer beta frank initiation overnight given recent inferior STEMI -Echocardiogram -Cardiac rehab consult when appropriate for the floor Please see resident H&P for full details and plan. Zach Cordova MD Pager [phone] Web Assistant documented in this encounter Miscellaneous Notes Plan of Care - Nayana Queen RN - 06/28/2015 2:44 PM EDT Problem: Cardiac Catheterization with/without PCI (Adult) Goal: Signs and symptoms of listed potential problems will be absent or manageable (reference (Cardiac Catheterization with/without PCI (Adult)) CPG) 06/28/15 1440 Cardiac Catheterization with/without PCI Problems Assessed (Cardiac Catheterization with/without PCI) all Problems Present (Cardiac Catheterization with/without PCI) none Problem: General Plan of Care Goal: Plan of Care Review 06/27/15 0432 06/28/15 0919 Plan of Care Review Plan of Care Outcome Status ongoing (interventions implemented as appropriate) -- Progress improving -- Coping/Psychosocial Response Interventions Plan of Care Reviewed with -- patient OUTCOME EVALUATION NOTE: OUTCOME SUMMARY: Alert and Oriented x4, denies chest pain or SOB. Right groin soft and non- tender. Groin care reviewed with patient including lifting restrictions and to call with pain, swelling or signs/symptoms of infection. Ambulating in [place] independently, able to climb stairs with cardiac rehab. Cleared for discharge. PLAN MOVING FORWARD: Patient discharged home with sister. AVS reviewed by Dr. De La Cruz, patient without questions at this time. INDIVIDUALIZED FALL PREVENTION: Assistance: independent Supervision: Call [place] in reach, telemetry, hourly rounding Surveillance: Intermittent. CPG GOAL OUTCOME EVALUATION: Goal: Fall Prevention-Safe Patient Handling 06/27/15 2100 06/28/15 0346 06/28/15 0919 Musculoskeletal Interventions Activity/Level of Assistance -- -- -- Positioning -- -- independent Muscle Strengthening -- activity/mobility promoted;mobility in bed promoted;sitting on edge of bed encouraged -- Self-Care Promotion -- instruction in safe use of adaptive equipment provided;independence encouraged while providing assistance;assistance provided to decrease frustration;personal routines for BADL/IADL promoted;personal/BADL objects within reach -- [place] Fall Risk History of Falling -- -- 0 Secondary Diagnosis -- -- 15 Ambulatory Aids -- -- 0 Intravenous Therapy/Heparin/Saline Lock -- -- 20 Gait/Transferring -- -- 0 Mental Status -- -- 0 Score -- -- 35 Activity and Safety Assistive Device None -- -- OTHER [place] Fall Risk -- -- Med Safety Interventions Safety Precautions/Fall Reduction -- -- environmental modification;lighting adjusted for task/safety;commode/urinal/bedpan at bedside;nonskid shoes/slippers when out of bed 06/28/15 1058 Musculoskeletal Interventions Activity/Level of Assistance ambulated Positioning -- Muscle Strengthening -- Self-Care Promotion -- [place] Fall Risk History of Falling -- Secondary Diagnosis -- Ambulatory Aids -- Intravenous Therapy/Heparin/Saline Lock -- Gait/Transferring -- Mental Status -- Score -- Activity and Safety Assistive Device -- OTHER [place] Fall Risk -- Safety Interventions Safety Precautions/Fall Reduction -- Goal: Infection Control 06/27/15 2041 06/28/15 0919 Coping/Psychosocial Response Interventions Counseling calming techniques promoted;emotional support provided;goal setting facilitated;relaxation techniques promoted -- Safety Interventions Isolation Precautions -- standard precautions maintained Infection Prevention -- bronchial hygiene promoted;environmental surveillance;hydration promoted;nutrition promoted;promote handwashing;rest/sleep promoted Goal: Discharge Needs Assessment 06/28/15 1440 Discharge Needs Assessment Concerns to be Addressed no discharge needs identified Readmission Within the Last 30 Days no previous admission in last 30 days Equipment Needed After Discharge none Living Environment Transportation Available family or friend will provide Current Health Anticipated Changes Related to Illness none Self-Care Equipment Currently Used at Home none Consult Note - Rani Jeffries RN - 06/28/2015 11:12 AM EDT Jose M Garibay was seen today by Cardiac Rehabilitation for: (no ) An activity evaluation - Patient walked 11 loops around the unit and up 26 stairs with RN supervision with no sx. (yes ) Educational packet regarding CAD, cardiac risk factors, and managing angina given to patient. Heart diagram reviewed. Given parameters for home exercise. Mediterranean diet guidelines briefly reviewed. Reviewed managing angina /use of sl nitroglycerin. (yes ) Participation to the outpatient cardiac rehabilitation program at [facility] was discussed. Patient agrees to a referral to this program. The referral will be sent at discharge and the patient should be contacted by the Program within 1- 2 weeks from discharge. Plan of Care - Brendan Paul RN - 06/28/2015 3:50 AM EDT Problem: Cardiac Catheterization with/without PCI (Adult) Goal: Signs and symptoms of listed potential problems will be absent or manageable (reference (Cardiac Catheterization with/without PCI (Adult)) CPG) Outcome: Ongoing (Interventions Implemented as Appropriate) 06/28/15 0346 Cardiac Catheterization with/without PCI Problems Assessed (Cardiac Catheterization with/without PCI) all Problems Present (Cardiac Catheterization with/without PCI) none Problem: General Plan of Care Goal: Plan of Care Review Outcome: Ongoing (Interventions Implemented as Appropriate) 06/27/15 0432 06/27/152040 Plan of Care Review Plan of Care Outcome Status ongoing (interventions implemented as appropriate) -- Progress improving -- Coping/Psychosocial Response Interventions Plan of Care Reviewed with -- patient Goal: Individualization and Mutuality Outcome: Ongoing (Interventions Implemented as Appropriate) 06/26/15 0600 06/26/15 1713 Individualization Patient Specific Goals -- transfer to regular room Mutuality/Individual Preferences What anxieties, fears or concerns do you have about your health or care? none -- What questions do you have about your health or care? none -- What information would help us give you more personalized care? none -- Goal: Fall Prevention-Safe Patient Handling Outcome: Ongoing (Interventions Implemented as Appropriate) 06/27/15 20406/27/15 2100 06/28/15 0346 Musculoskeletal Interventions Activity/Level of Assistance -- ambulated;independently -- Positioning -- independent -- Muscle Strengthening -- -- activity/mobility promoted;mobility in bed promoted;sitting on edge of bed encouraged Self-Care Promotion -- -- instruction in safe use of adaptive equipment provided;independence encouraged while providing assistance;assistance provided to decrease frustration;personal routines for BADL/IADL promoted;personal/BADL objects within reach [place]arez Fall Risk History of Falling 0 -- -- Secondary Diagnosis 15 -- -- Ambulatory Aids 0 -- -- Intravenous Therapy/Heparin/Saline Lock 20 -- -- Gait/Transferring 0 -- -- Mental Status 0 -- -- Score 35 -- -- Activity and Safety Assistive Device -- None -- OTHER [place] Fall Risk Med -- -- Safety Interventions Safety Precautions/Fall Reduction environmental modification;commode/urinal/bedpan at bedside;fall reduction program maintained;lighting adjusted for task/safety;low bed;muscle strengthening facilitated;nonskid shoes/slippers when out of bed;room near unit station -- -- Goal: Infection Control Outcome: Ongoing (Interventions Implemented as Appropriate) 06/27/15 2041 Coping/Psychosocial Response Interventions Counseling calming techniques promoted;emotional support provided;goal setting facilitated;relaxation techniques promoted Safety Interventions Isolation Precautions standard precautions maintained Infection Prevention rest/sleep promoted;promote handwashing;nutrition promoted;hydration promoted;environmental surveillance Goal: Discharge Needs Assessment Outcome: Ongoing (Interventions Implemented as Appropriate) 06/26/15 1713 Discharge Needs Assessment Concerns to be Addressed no discharge needs identified Readmission Within the Last 30 Days no previous admission in last 30 days Living Environment Transportation Available car;family or friend will provide OUTCOME EVALUATION NOTE: OUTCOME SUMMARY: Pt resting in bed, no complaints over night. Denies pain/ pressure, no SOB,denies n/v. Pt ambulated in hallway, denies any symptoms. Pt looking forward to going home. NSR on tele, rare PAC/PVCs. Will continue monitoring. PLAN MOVING FORWARD: Possible d/c Sunday? INDIVIDUALIZED FALL PREVENTION: Assistance: SBA Supervision: Arms reach Surveillance: Cardiac monitoring, pulse oximetry, close to RN station, purposeful rounding CPG GOAL OUTCOME EVALUATION: Plan of Care - Genie Henry RN - 06/27/2015 4:26 PM EDT Problem: Cardiac Catheterization with/without PCI (Adult) Goal: Signs and symptoms of listed potential problems will be absent or manageable (reference (Cardiac Catheterization with/without PCI (Adult)) CPG) Outcome: Ongoing (Interventions Implemented as Appropriate) 06/27/15 0432 Cardiac Catheterization with/without PCI Problems Assessed (Cardiac Catheterization with/without PCI) all Problems Present (Cardiac Catheterization with/without PCI) none OUTCOME EVALUATION NOTE: OUTCOME SUMMARY: No c/o CP today. Pt ambulated x1, however refusing more walks r/t family visits and needing a nap.Groin site negative. PLAN MOVING FORWARD: Medically ready to move to [facility] when bed becomes available, ? Dc Sunday vs sunday INDIVIDUALIZED FALL PREVENTION: Assistance: ind Supervision: Call [place] within reach Surveillance: Tele, purposeful rounding CPG OUTCOME EVALUATION: ongoing Problem: General Plan of Care Goal: Plan of Care Review Outcome: Ongoing (Interventions Implemented as Appropriate) 06/27/15 0432 06/27/15 0850 Plan of Care Review Plan of Care Outcome Status ongoing (interventions implemented as appropriate) -- Progress improving -- Coping/Psychosocial Response Interventions Plan of Care Reviewed with -- patient Goal: Fall Prevention-Safe Patient Handling Outcome: Ongoing (Interventions Implemented as Appropriate) 06/27/15 0000 06/27/15 0850 [place] Fall Risk History of Falling -- 0 Secondary Diagnosis -- 15 Ambulatory Aids -- 0 Intravenous Therapy/Heparin/Saline Lock -- 20 Gait/Transferring -- 0 Mental Status -- 0 Score -- 35 Activity and Safety Assistive Device None -- OTHER [place] Fall Risk -- Med Safety Interventions Safety Precautions/Fall Reduction -- commode/urinal/bedpan at bedside;environmental modification;fall reduction program maintained;lighting adjusted for task/safety;muscle strengthening facilitated;nonskid shoes/slippers when out of bed;room near unit station Musculoskeletal Interventions Activity/Level of Assistance -- up in room Positioning -- independent Goal: Infection Control Outcome: Ongoing (Interventions Implemented as Appropriate) 06/26/15199906/27/15 0850 Coping/Psychosocial Response Interventions Counseling calming techniques promoted;emotional support provided -- Safety Interventions Isolation Precautions -- standard precautions maintained Infection Prevention -- bronchial hygiene promoted;environmental surveillance;hydration promoted;nutrition promoted;promote handwashing;rest/sleep promoted Plan of Care - Genie Terry RN - 06/27/2015 4:42 AM EDT Problem: Cardiac Catheterization with/without PCI (Adult) Goal: Signs and symptoms of listed potential problems will be absent or manageable (reference (Cardiac Catheterization with/without PCI (Adult)) CPG) Outcome: Ongoing (Interventions Implemented as Appropriate) 06/27/15431 Cardiac Catheterization with/without PCI Problems Assessed (Cardiac Catheterization with/without PCI) all Problems Present (Cardiac Catheterization with/without PCI) none Problem: General Plan of Care Goal: Plan of Care Review Outcome: Ongoing (Interventions Implemented as Appropriate) 06/27/15431 Plan of Care Review Plan of Care Outcome Status ongoing (interventions implemented as appropriate) Progress improving Coping/Psychosocial Response Interventions Plan of Care Reviewed with patient OUTCOME EVALUATION NOTE: OUTCOME SUMMARY: VSS on RA. Complained of a 2/10 sharp fleeting chest pain that lasted 2 second. Otherwise no chest pain. H/A relieved by tylenol. Right groin site has no bleeding or hematoma. PLAN MOVING FORWARD: Monitor chest pain Consult Cardiac rehab INDIVIDUALIZED FALL PREVENTION: Assistance: stand by assist Supervision: Near nurse station, rings call [place] appropriately Surveillance: Tele, pulse ox, purposeful hourly rounding CPG GOAL OUTCOME EVALUATION: Goal: Fall Prevention-Safe Patient Handling 06/26/15199906/27/1506/27/15337 [place] Fall Risk History of Falling 0 -- -- Secondary Diagnosis 15 -- -- Ambulatory Aids 0 -- -- Intravenous Therapy/Heparin/Saline Lock 20 -- -- Gait/Transferring 0 -- -- Mental Status 0 -- -- Score 35 -- -- Activity and Safety Assistive Device -- None -- OTHER [place] Fall Risk Med -- -- Safety Interventions Safety Precautions/Fall Reduction -- -- environmental modification;fall reduction program maintained;lighting adjusted for task/safety;low bed;nonskid shoes/slippers when out of bed;room near unit station Musculoskeletal Interventions Activity/Level of Assistance -- up in room;with stand by assist -- Positioning -- -- independent Goal: Infection Control Outcome: Ongoing (Interventions Implemented as Appropriate) 06/26/15199906/27/15 033 Coping/Psychosocial Response Interventions Counseling calming techniques promoted;emotional support provided -- Safety Interventions Isolation Precautions -- standard precautions maintained Infection Prevention bronchial hygiene promoted;blood glucose management;environmental surveillance;hydration promoted;promote handwashing;nutrition promoted;rest/sleep promoted -- Plan of Care - Lelsee Fong RN - 06/26/2015 5:19 PM EDT Problem: Cardiac Catheterization with/without PCI (Adult) Goal: Signs and symptoms of listed potential problems will be absent or manageable (reference (Cardiac Catheterization with/without PCI (Adult)) CPG) Outcome: Ongoing (Interventions Implemented as Appropriate) 06/26/151712 Cardiac Catheterization with/without PCI Problems Assessed (Cardiac Catheterization with/without PCI) all Problems Present (Cardiac Catheterization with/without PCI) none Problem: General Plan of Care Goal: Plan of Care Review Outcome: Ongoing (Interventions Implemented as Appropriate) 06/26/151712 Plan of Care Review Plan of Care Outcome Status ongoing (interventions implemented as appropriate) Progress improving Coping/Psychosocial Response Interventions Plan of Care Reviewed with patient OUTCOME EVALUATION NOTE: OUTCOME SUMMARY: Pt remained on bedrest through morning s/p cardiac cath and stent placement. Right groin perclose, soft, scant superficial ooze, covered with Syvek and has remained CDI since, distal pulses 2+. Cardiacenzymes trending down, K+ replaced. Pt's BP remained elevated after am Lisinopril and Metoprolol 12.5 mg PO. Metoprolol increased to 25 mg PO q 6 beginning at noon with improvement in BP (see flowsheet). Pt c/o 1/10 back pain and later 3/10 headache, both relieved completely after Tylenol 650 mg PO. Pt has slept on and off, up to chair w/o difficulty, ate 50% of breakfast and lunch. PLAN MOVING FORWARD: Awaiting transfer orders to ICCU/CSCU. Pt education and rehab. INDIVIDUALIZED FALL PREVENTION: Assistance: Up in room w/stand-by assist Supervision: RN/KELLY Surveillance: RN CVCC level of care. CPG GOAL OUTCOME EVALUATION: Goal: Individualization and Mutuality Outcome: Ongoing (Interventions Implemented as Appropriate) 06/26/151712 Individualization Patient Specific Goals transfer to regular room Goal: Fall Prevention-Safe Patient Handling Outcome: Ongoing (Interventions Implemented as Appropriate) Goal: Infection Control Outcome: Ongoing (Interventions Implemented as Appropriate) Goal: Discharge Needs Assessment Outcome: Ongoing (Interventions Implemented as Appropriate) 06/26/151712 Discharge Needs Assessment Concerns to be Addressed no discharge needs identified Readmission Within the Last 30 Days no previous admission in last 30 days Living Environment Transportation Available car;family or friend will provide Plan of Care - Tracey Tan RN - 06/26/2015 6:17 AM EDT Problem: Cardiac Catheterization with/without PCI (Adult) Intervention: Hemodynamic Stabilization 06/26/15 0616 Cardiac Interventions Hemodynamic Stabilization antihypertensive medication management Goal: Signs and symptoms of listed potential problems will be absent or manageable (reference (Cardiac Catheterization with/without PCI (Adult)) CPG) Outcome: Ongoing (Interventions Implemented as Appropriate) 06/26/15 0616 Cardiac Catheterization with/without PCI Problems Assessed (Cardiac Catheterization with/without PCI) all Problems Present (Cardiac Catheterization with/without PCI) none documented in this encounter Plan of Treatment Scheduled Referrals Name Type Priority Associated Diagnoses Order S chedule Referral to Outpatient Referral Routine ST elevation Ordered: Cardiac Rehab myocardial 06/28/2015 infarction (STEMI) of inferior wall documented as of this encounter Procedures Procedure Name Priority Date/Time Associated Comments Diagnosis IMPLANTABLE DEVICES SCAN 06/29/2015 12:00 AM EDT SHEET METAL DUCT WORKER SUPERVISOR SCAN 06/29/2015 12:00 AM EDT SHEET METAL DUCT WORKER SUPERVISOR SCAN 06/29/2015 12:00 AM EDT CARDIAC CATH SCAN 06/29/2015 12:00 AM EDT HEMOGRAM Routine 06/28/2015 4:11 Results for this AM EDT procedure are i n the results section. DIFFERENTIAL, AUTOMATED Routine 06/28/2015 4:11 R esults for this AM EDT procedure are i n the results section. CBC (WITH DIFF) Routine 06/28/2015 4:11 AM EDT BASIC METABOLIC PANEL Routine 06/28/2015 4:11 Res ults for this (NON-FASTING) AM EDT procedure are in the results section. EKG 12-LEAD Routine 06/27/2015 7:38 ST elevation Results for this AM EDT myocardial procedure are i n infarction (STEMI) the resul ts of inferior wall section. BMP W/FASTING GLUCOSE Routine 06/27/2015 3:36 Res ults for this AM EDT procedure are i n the results section. HEMOGRAM Routine 06/27/2015 3:36 Results for this AM EDT procedure are i n the results section. DIFFERENTIAL, AUTOMATED Routine 06/27/2015 3:36 R esults for this AM EDT procedure are i n the results section. CARDIAC ENZYMES Routine 06/27/2015 3:36 Results f or this ([facility]) AM EDT procedure are i n the results section. CBC (WITH DIFF) Routine 06/27/2015 3:36 AM EDT TRIGLYCERIDE Routine 06/27/2015 3:36 Results for this AM EDT procedure are i n the results section. MAGNESIUM Routine 06/27/2015 3:36 Results for this AM EDT procedure are i n the results section. LDL CHOLESTEROL, DIRECT Routine 06/27/2015 3:36 R esults for this AM EDT procedure are i n the results section. HDL/CHOL PROFILE Routine 06/27/2015 3:36 Results for this AM EDT procedure are i n the results section. HEMOGLOBIN A1C Routine 06/27/2015 3:36 Results fo r this AM EDT procedure are i n the results section. CARDIAC ENZYMES Routine 06/26/2015 8:07 Results f or this ([facility]) PM EDT procedure are i n the results section. ECHOCARDIOGRAM COMPLETE Routine 06/26/2015 1:33 ST elevation R esults for this W CONTRAST PM EDT myocardial procedure are i n infarction (STEMI) the resul ts of inferior wall section. CARDIAC ENZYMES Routine 06/26/2015 12:20 Results for this ([facility]) PM EDT procedure are i n the results section. XR CHEST ONE VIEW Routine 06/26/2015 8:31 Results for this AM EDT procedure are i n the results section. HEMOGRAM Routine 06/26/2015 5:50 Results for this AM EDT procedure are i n the results section. DIFFERENTIAL, AUTOMATED Routine 06/26/2015 5:50 R esults for this AM EDT procedure are i n the results section. CBC (WITH DIFF) Routine 06/26/2015 5:50 AM EDT CARDIAC ENZYMES STAT 06/26/2015 5:30 Results f or this ([facility]) AM EDT procedure are i n the results section. MAGNESIUM STAT 06/26/2015 5:30 Results for this AM EDT procedure are i n the results section. BASIC METABOLIC PANEL STAT 06/26/2015 5:30 Res ults for this (NON-FASTING) AM EDT procedure are in the results section. CARDIAC CATHETERIZATION Routine 06/26/2015 4:31 R esults for this AM EDT procedure are i n the results section. EKG 12-LEAD STAT 06/26/2015 4:21 ST elevation Results for this AM EDT myocardial procedure are i n infarction (STEMI) the resul ts of inferior wall section. documented in this encounter Results SCAN DOC: SHEET METAL DUCT WORKER SUPERVISOR (06/29/2015 12:00 AM EDT) Narrative This result has an attachment that is no t available. Scanning Provider MEDIA MGR SCAN EXT ORDR/RSLT SCAN DOC: SHEET METAL DUCT WORKER SUPERVISOR (06/29/2015 12:00 AM EDT) Narrative This result has an attachment that is no t available. Scanning Provider MEDIA MGR SCAN EXT ORDR/RSLT SCAN DOC: IMPLANTABLE DEVICES (06/29/2015 12:00 AM EDT) Narrative This result has an attachment that is no t available. Scanning Provider MEDIA MGR SCAN EXT ORDR/RSLT SCAN DOC: CARDIAC CATH (06/29/2015 12:00 AM EDT) Narrative This result has an attachment that is no t available. Scanning Provider MEDIA MGR SCAN EXT ORDR/RSLT (ABNORMAL) Differential, Automated (06/28/2015 4:11 AM EDT) [facility] gist Method Time Signature Neutrophils % 54.2 % [facility] Neutr Abs (ANC) 5.90 1.50 - [facility] 6.30 [facility] x10(3)/[facility] LABORATORY Lymphocytes % 35.6 % [facility] Lymphocytes Abs 3.9 (H) 1.0 - 3.6 [facility] x10(3)/[facility] LABORATORY Monocytes % 7.4 % [facility] Monocyte Abs 0.8 0.2 - 1.0 [facility] x10(3)/[facility] LABORATORY Eosinophils % 2.5 % [facility] Eosinophils Abs 0.3 0.0 - 0.5 [facility] x10(3)/[facility] LABORATORY Basophils % 0.2 % [facility] Basophils Abs 0.0 0.0 - 0.2 [facility] x10(3)/[facility] LABORATORY Immature Gran % 0.10 % [facility] Comment: Immature granulocytes(IG's)percentage an d absolute count will include metamyelocytes, myelocytes, and promyelo cytes. Blood smears from CBCs yielding IG's will be scanned manually for concor dance. If this scan disagrees with the automated IG or if promyelocytes are not ed, a manual differential will be performed. Ary Gran Abs 0.01 0.00 - 0.05 x10(3)/[facility] Specimen Anatomical Collection Method Collection Time Receive d Time (Source) Location / / Volume Laterality Blood specimen 06/28/2015 4:11 AM 016 4:25 (specimen) EDT AM EDT Resulting Agency Comment Spec In Lab Frankie Gregorio MD HEMATOLOGY ORDERABLES Performing Organization Address City/State/[place] [address] (ABNORMAL) Hemogram (06/28/2015 4:11 AM EDT) P athologist Signature WBC 10.9 (H) 4.0 - 10.0 [facility] LABORATORY RBC 5.33 4.63 - [facility] 6.08 [facility] x10(6)/[facility] Hemoglobin 15.2 13.7 - [facility] 17.5 gm/dL [facility] Hematocrit 46.5 40.0 - [facility] 51.0 % [facility] MCV 87.2 79.0 - [facility] 92.0 [facility] LABORATORY MCH 28.5 25.6 - [facility] 32.2 pg [facility] MCHC 32.7 32.0 - [facility] 36.5 gm/dL [facility] Platelets 198 145 - 370 [facility] LABORATORY RDWSD 42.6 35.0 - [facility] 46.0 [facility] RDWCV 13.5 10.9 - [facility] 14.4 % [facility] MPV 11.7 9.0 - 12.0 [facility] LABORATORY Specimen Anatomical Collection Method Collection Time Receive d Time (Source) Location / / Volume Laterality Blood specimen 06/28/2015 4:11 AM 016 4:25 (specimen) EDT AM EDT Resulting Agency Comment Spec In Lab Frankie Gregorio MD HEMATOLOGY ORDERABLES Performing Organization Address City/State/[place] [address] Basic Metabolic Panel (non-fasting) (06/28/2015 4:11 AM EDT) athologist Signature Glucose Lvl 88 65 - 199 [facility] mg/dL [facility] Comment: Diabetes: >=200 mg/dL plus symp toms BUN 13 10 - 20 mg/dL [facility] Creatinine 0.99 0.80 - 1.50 mg/dL [facility] Comment: Please note that the pediatric reference intervals supplied above were not validated at [facility]. Results from pediatri c patients should be interpreted in conjunction to the patient's age, height and muscle mass. Sodium 140 135 - 145 mmol/L [facility] Potassium 4.2 3.5 - 5.0 mmol/L [facility] Comment: Please note: ??Patients with WBC >100,00 0 may have falsely elevated Potassium levels. ??For accurate Potassium quantif ication in these patients send serum separator tube (gold top) for subsequent determinations. ??Contact the Clinical Chemistry Laboratory if there are any qu estions. Chloride 104 98 - 107 mmol/L [facility] CO2 22 22 - 31 mmol/L [facility] Anion Gap 14 5 - 15 mmol/L [facility] Calcium 8.6 8.5 - 10.5 mg/dL [facility] Estimated GFR >60 >=60 [facility] Comment: This estimated GFR (eGFR) value was calc ulated using the MDRD equation which has been validated on patients between t he ages of 18 and 70. The MDRD should not be used to assess kidney function in patients < 18 years of age or in patients with extremes of body mass, or in patients with acute kidney failure. This value should be multiplied by 1.2 f or patients. For further information please copy and past e the following links into your internet browser. [email or web address] Specimen Anatomical Collection Method Collection Time Receive d Time (Source) Location / / Volume Laterality Blood specimen 06/28/2015 4:11 AM 016 4:25 (specimen) EDT AM EDT Resulting Agency Comment Spec In Lab Frankie Gregorio MD CHEMISTRY ORDERABLES Performing Organization Address City/[facility] Phon e Number [place] [phone] EKG 12 Lead (06/27/2015 7:38 AM EDT) Component Value Ref Range Test Analysis Performed Pathologis t Method Time At Signature Ventricular rate 67 BPM MUSE SYSTEM Atrial Rate 67 BPM MUSE SYSTEM P-R Interval 144 ms MUSE SYSTEM QRS Duration 76 ms MUSE SYSTEM Q-T Interval 424 ms MUSE SYSTEM QTC Calculated 448 ms MUSE SYSTEM (Bezet) Calculated P Crosby 26 degrees MUSE SYSTEM Calculated R Crosby 3 degrees MUSE SYSTEM Calculated T Crosby -25 degrees MUSE SYSTEM INTERPRETATION Normal sinus rhythm MUSE SYSTEM Inferior infarct , age undetermined Abnormal ECG No previous ECGs available Confirmed by MD Linden, Dawit Hughes ([id number]) on 06/27/2015 9:51:33 AM Specimen Anatomical Collection Method Collection Time Receive d Time (Source) Location / / Volume Laterality 06/27/2015 7:38 AM 6 9:51 EDT AM EDT Frankie Gregorio MD ECG ORDERABLES Performing Organization Address City/[facility] Phon e Number MUSE SYSTEM (ABNORMAL) BMP w/fasting Glucose (06/27/2015 3:36 AM EDT) P athologist Signature Glucose 100 (H) 65 - 99 [facility] Fasting mg/dL [facility] Comment: ?Fasting* Glucose Interpretive C riteria Normal ?65-99 mg/dL Impaired Fasting glucose ?100-125 mg/dL Consistent with Diabetes Mellitus ? >or= 126 mg/dL *Fasting is defined as no caloric intake for at least 8 hours In the absence of unequivocal hypergly cemia a plasma glucose value of >or= 126 mg/dL should be repeated on a subseq uent day. Diagnosis and Classification of Diabetes Mellitus, Position Statement from the [place] [employer]. ??Diabete s Care, Volume 33, Supplement 1, Apr 2009 BUN 11 10 - 20 mg/dL [facility] Creatinine 1.00 0.80 - 1.50 mg/dL [facility] Comment: Please note that the pediatric reference intervals supplied above were not validated at [facility]. Results from pediatri c patients should be interpreted in conjunction to the patient's age, height and muscle mass. Sodium 140 135 - 145 mmol/L [facility] Potassium 3.9 3.5 - 5.0 mmol/L [facility] Comment: Please note: ??Patients with WBC >100,00 0 may have falsely elevated Potassium levels. ??For accurate Potassium quantif ication in these patients send serum separator tube (gold top) for subsequent determinations. ??Contact the Clinical Chemistry Laboratory if there are any qu estions. Chloride 105 98 - 107 mmol/L [facility] CO2 21 (L) 22 - 31 mmol/L [facility] Anion Gap 14 5 - 15 mmol/L [facility] Calcium 8.5 8.5 - 10.5 mg/dL [facility] Comment: result rechecked-llu Estimated GFR >60 >=60 [facility] Comment: This estimated GFR (eGFR) value was calc ulated using the MDRD equation which has been validated on patients between t he ages of 18 and 70. The MDRD should not be used to assess kidney function in patients < 18 years of age or in patients with extremes of body mass, or in patients with acute kidney failure. This value should be multiplied by 1.2 f or patients. For further information please copy and past e the following links into your internet browser. [email or web address] Specimen Anatomical Collection Method Collection Time Receive d Time (Source) Location / / Volume Laterality Blood specimen 06/27/2015 3:36 AM 016 3:44 (specimen) EDT AM EDT Resulting Agency Comment Spec In Lab Frankie Gregorio MD CHEMISTRY ORDERABLES Performing Organization Address City/State/[place] [address] Differential, Automated (06/27/2015 3:36 AM EDT) P athologist Signature Neutrophils % 60.3 % [facility] Neutr Abs (ANC) 6.12 1.50 - [facility] 6.30 [facility] x10(3)/[facility] LABORATORY Lymphocytes % 30.1 % [facility] Lymphocytes Abs 3.1 1.0 - 3.6 [facility] x10(3)/[facility] LABORATORY Monocytes % 8.2 % [facility] Monocyte Abs 0.8 0.2 - 1.0 [facility] x10(3)/[facility] LABORATORY Eosinophils % 1.1 % [facility] Eosinophils Abs 0.1 0.0 - 0.5 [facility] x10(3)/[facility] LABORATORY Basophils % 0.2 % [facility] Basophils Abs 0.0 0.0 - 0.2 [facility] x10(3)/[facility] LABORATORY Immature Gran % 0.10 % [facility] Comment: Immature granulocytes(IG's)percentage an d absolute count will include metamyelocytes, myelocytes, and promyelo cytes. Blood smears from CBCs yielding IG's will be scanned manually for concor dance. If this scan disagrees with the automated IG or if promyelocytes are not ed, a manual differential will be performed. Ary Gran Abs 0.01 0.00 - 0.05 x10(3)/[facility]ORY Specimen Anatomical Collection Method Collection Time Receive d Time (Source) Location / / Volume Laterality Blood specimen 06/27/2015 3:36 AM 016 3:44 (specimen) EDT AM EDT Resulting Agency Comment Spec In Lab Frankie Gregorio MD HEMATOLOGY ORDERABLES Performing Organization Address City/State/[place] [address] (ABNORMAL) Hemogram (06/27/2015 3:36 AM EDT) P athologist Signature WBC 10.2 (H) 4.0 - 10.0 [facility] x10(3)/[facility] LABORATORY RBC 5.32 4.63 - [facility] 6.08 [facility] x10(6)/[facility] LABORATORY Hemoglobin 15.3 13.7 - [facility] 17.5 gm/dL [facility] Hematocrit 45.4 40.0 - [facility] 51.0 % [facility] MCV 85.3 79.0 - [facility] 92.0 [facility] LABORATORY MCH 28.8 25.6 - [facility] 32.2 pg [facility] MCHC 33.7 32.0 - [facility] 36.5 gm/dL [facility] Platelets 207 145 - 370 [facility] LABORATORY RDWSD 43.0 35.0 - [facility] 46.0 [facility] LABORATORY RDWCV 13.8 10.9 - [facility] 14.4 % [facility] MPV 11.7 9.0 - 12.0 [facility] LABORATORY Specimen Anatomical Collection Method Collection Time Receive d Time (Source) Location / / Volume Laterality Blood specimen 06/27/2015 3:36 AM 016 3:44 (specimen) EDT AM EDT Resulting Agency Comment Spec In Lab Frankie Gregorio MD HEMATOLOGY ORDERABLES Performing Organization Address City/State/[place] [address] (ABNORMAL) Cardiac Enzymes (06/27/2015 3:36 AM EDT) P athologist Signature Troponin-T 2.21 (H) <=0.03 [facility] ng/mL [facility] Comment: result rechecked-llu 0.03 ng/mL: Represents the 99th percenti le upper reference limit for normals. >0.03 ng/mL: Elevated cardiac troponin T level indicative of myocardial damage. Diagnosis of acute, evolving or recent M I requires a typical rise and gradual fall of cTnT with at least ONE of the fo llowing: a) Ischemic symptoms b) Development of pathologic Q waves on the ECG c) ECG changes indicative of eschemia (S -T segment elevation/depression) d) Coronary artery intervention Serial bloods should be obtained for nancy ting on admission, at 6 to 9 hrs and again at 12 to 24 hrs if earlier samples are negative and the clinical index of suspicion is high. Reference: [Myocardial infarction redefined? a consensus document of the Joint Society of Cardiology/[place] College o f Cardiology Committee for the redefinition of myocardial infarction. ? ?Journal of the [place] College of [employer]iology 2000; 36: 959-969] CK, Total 708 (H) 0 - 200 unit/L [facility] Specimen Anatomical Collection Method Collection Time Receive d Time (Source) Location / / Volume Laterality Blood specimen 06/27/2015 3:36 AM 016 3:44 (specimen) EDT AM EDT Resulting Agency Comment Spec In Lab Frankie Gregorio MD CHEMISTRY ORDERABLES Performing Organization Address City/[facility]/ZIP Code Phon e Number [address] Magnesium (06/27/2015 3:36 AM EDT) P athologist Signature Magnesium 0.85 0.69 - 1.07 [facility] mmol/L [facility] Specimen Anatomical Collection Method Collection Time Receive d Time (Source) Location / / Volume Laterality Blood specimen 06/27/2015 3:36 AM 016 3:44 (specimen) EDT AM EDT Resulting Agency Comment Spec In Lab Frankie Gregorio MD CHEMISTRY ORDERABLES Performing Organization Address City/[facility] [place] [address] Triglyceride (06/27/2015 3:36 AM EDT) P athologist Signature Triglycerides 111 <=149 [facility] mg/dL [facility] Comment: Reference Range: Normal triglycerides: ??<150 mg/dL Borderline high: ??150-199 mg/dL High: ??200-499 mg/dL Very high: ??>kt=701 mg/dL GIA 2001; 285(19):9413-9028 Specimen Anatomical Collection Method Collection Time Receive d Time (Source) Location / / Volume Laterality Blood specimen 06/27/2015 3:36 AM 016 3:44 (specimen) EDT AM EDT Resulting Agency Comment Spec In Lab Frankie Gregorio MD CHEMISTRY ORDERABLES Performing Organization Address City/State/[place] [address] (ABNORMAL) HDL/Cholesterol Profile (06/27/2015 3:36 AM EDT) athologist Signature Chol, Total 154 <=199 mg/dL [facility] Comment: Recommendations of the NCEP Adult Treatm ent Panel for the following risk cutoff thresholds for the [place] populatio n: Desirable: <200 mg/dL Borderline High: 200-239 mg/dL High: > or = 240 mg/dL HDL 29 (L) >=40 mg/dL [facility] Comment: Reference range: ??Low HDL: ?? < 40 mg/dL ??Normal: ?40-60 mg/dL ??Desirable: > 60 mg/dL GIA 2001; 285(19):2833-8923 Chol/HDL Ratio 5.3 ratio [facility] Comment: A Cholesterol to HDL ratio below 4:1 is desirable. ??Studies suggest that increased CAD risk occurs at ratios abov e 5 for females and above 6 for men. ? [place] [employer] Association ??(htt p://www.americanheart.org) ? Janet Int Med, 1994; 121:641 ? AM J Med, 1998; 105(1A):48S Specimen Anatomical Collection Method Collection Time Receive d Time (Source) Location / / Volume Laterality Blood specimen 06/27/2015 3:36 AM 016 3:44 (specimen) EDT AM EDT Resulting Agency Comment Spec In Lab Frankie Gregorio MD CHEMISTRY ORDERABLES Performing Organization Address [facility]/ZIP Code Phon e Number [address] (ABNORMAL) LDL Cholesterol, Direct (06/27/2015 3:36 AM EDT) P athologist Signature LDL Chol 110 (H) <=99 mg/dL [facility] LABORATORY Comment: The National Cholesterol Education Progr am (NCEP) has set the following guidelines for LDL Cholesterol: Reference range: ?? Optimal: ?<100 mg/dL ?? Near Optimal/Above Optimal: ?? 100-1 29 mg/dL ?? Borderline high: ?130-159 mg/dL ?? High: ? 160-189 mg/dL ?? Very high: ?>ms=540 mg/dL GIA 2001: 285(19):4426-0988 Specimen Anatomical Collection Method Collection Time Receive d Time (Source) Location / / Volume Laterality Blood specimen 06/27/2015 3:36 AM 016 3:44 (specimen) EDT AM EDT Resulting Agency Comment Spec In Lab Frankie Gregorio MD CHEMISTRY ORDERABLES Performing Organization Address City/[facility]/[place] [address] (ABNORMAL) Hemoglobin A1c (06/27/2015 3:36 AM EDT) Analysis Performed At Patho logist Time Signature Hemoglobin A1C 5.7 (H) 4.3 - 5.6 [facility] Comment: Reference Range: 4.3 - 5.6% 5.7 - 6.4% - Increased Risk of Developin g Diabetes Mellitus 6.5% - Consistent with diagnosis of Diab etes Mellitus In the absence of hyperglycemia (i.e. pl asma glucose > 200 mg/dL) or classic symptoms of hyperglycemia a repeat measu rement of HbA1c should be performed on a separate sample to confirm the diagnos is. Diagnosis and Classification of Diabetes Mellitus, Diabetes Care 2013; 36: Suppl. 1, S67-74 Est Avg Gluc 117 mg/dL [facility] Comment: eAG equivalents for HbA1c percentages: HbA1c(%) ?eAG(mg/dL) 6.0 ?126 6.5 ?140 7.0 ?154 7.5 ?169 8.0 ?183 8.5 ?197 9.0 ?212 9.5 ?226 10.0 ? 240 Limitations: The eAG calculation has not been validated on women, individuals below 18 years old and above 70 years old, and individuals with hemoglobinopathies. Additional resources are available on [facility] website: [email or web address] Panfilo VELÁZQUEZ, Laura J, Delon R, et al. ??Tr anslating the A1C assay into estimated average glucose values. ??Diabetes Care 2008:31(8):8245-1118. Specimen Anatomical Collection Method Collection Time Receive d Time (Source) Location / / Volume Laterality Blood specimen 06/27/2015 3:36 AM 016 3:44 (specimen) EDT AM EDT Resulting Agency Comment Spec In Lab Frankie Gregorio MD CHEMISTRY ORDERABLES Performing Organization Address City/State/[place] [address] (ABNORMAL) Cardiac Enzymes (06/26/2015 8:07 PM EDT) athologist Signature Troponin-T 2.80 (H) <=0.03 [facility] ng/mL [facility] Comment: result rechecked-FC 0.03 ng/mL: Represents the 99th percenti le upper reference limit for normals. >0.03 ng/mL: Elevated cardiac troponin T level indicative of myocardial damage. Diagnosis of acute, evolving or recent M I requires a typical rise and gradual fall of cTnT with at least ONE of the fo llowing: a) Ischemic symptoms b) Development of pathologic Q waves on the ECG c) ECG changes indicative of eschemia (S -T segment elevation/depression) d) Coronary artery intervention Serial bloods should be obtained for nancy ting on admission, at 6 to 9 hrs and again at 12 to 24 hrs if earlier samples are negative and the clinical index of suspicion is high. Reference: [Myocardial infarction redefined? a consensus document of the Joint Society of Cardiology/[employer] o f [employer] Committee for the redefinition of myocardial infarction. ? ?Journal of the [place] College [employer] Cardiology 2000; 36: 959-969] CK, Total 1,018 (H) 0 - 200 unit/L [facility] Specimen Anatomical Collection Method Collection Time Receive d Time (Source) Location / / Volume Laterality Blood specimen 06/26/2015 8:07 PM 016 8:13 (specimen) EDT PM EDT Resulting Agency Comment Spec In Lab Frankie Gregorio MD CHEMISTRY ORDERABLES Performing Organization Address City/State/ZIP Code Phon e Number [place] [id number] ECHOCARDIOGRAM COMPLETE W CONTRAST (06/26/2015 1:33 PM EDT) athologist Signature EF 55 [facility] Anatomical Region Laterality Modality Other Specimen (Source) Anatomical Location Collection Method / Collectio n Time Received Time / Laterality Volume 06/26/2015 Narrative 06/26/2015 5:32 PM EDT Procedure: ?Transthoracic Echocardiogram Patient: ?MAIN BERMEO M ?? (Age): 1955(59y) Med Rec#: ? [id number] ?Sex: ?M ? Site Loc: ? [facility] ?Ht / Wt: ??193(cm)/107(kg) Pt. Loc: ?[facility] ? BSA: ?2.38 Study Date: ?? 06/26/2015 ?Pt. Type: Inpatient Tape: ? Referring: SAMI CARDOZO Referring: Frankie Gregorio ([id number] ) Reading: Frankie Gregorio ([id number]) Presetter Operator: Allison Miller BA, [facility] Diagnosis: *ICD-10-PCS ST elevation (STEMI) myocar dial infarction involving other coronary artery of inferior wall (I21.19 ) CPT Codes: *Echo Full (02412) *Spectral Doppler (43887) *Color Doppler (22110) *Optison ([id number]) BP: ? 147/91 SUMMARY: 1. Technically limited study despite the use of contrast. 2. The left ventricular chamber size is normal. Left ventricular wall thickness is normal. There is normal barbara bal left ventricular systolic function. ??Ejection fraction is estimat ed to be 55%. There are left ventricular segmental wall motion abnorm alities present, as shown in the diagram below. Doppler assessment is con sistent with normal left sided filling pressure. 3. Right ventricular chamber size, wall thickness, and systolic function are within normal limits. Pulmonary amisha ry pressures could not be assessed due to inadequate tricuspid reg urgitation jet. 4. There is no hemodynamically significa nt valvular disease. 5. See remainder of report for additiona l findings. Findings ? : Study Quality: ? Technically limited Left Ventricle: ? The left ventricul ar chamber size is normal. ?Left ventricular wall thickness is normal. ?There is normal global left ventri cular systolic function. ??Ejection fraction is estimated to be 55%. ?There are left ventricular segment al wall motion abnormalities present, as shown in the diagram below. ?Doppler assessment is consistent w ith normal left sided filling pressure. ?The ??mid inferior, and ??mid infe roseptal wall segments are hypokinetic (score 2). ?The ??basal inferior, and ??basal inferoseptal wall segments are akinetic (score 3). ?Overall wallmotion score index is ??1.38 Left Atrium: ? The left atrium is no rmal in size. (14 ml/m2 by volume index) Right Ventricle: ? Right ventricular chamber size, wall thickness, and systolic function are within normal limi ts. ?Pulmonary artery hypertension coul d not be assessed due to inadequate tricuspid regurgitation jet. Right Atrium: ? The right atrium stanislaw ears normal. Aortic Valve: ? The aortic valve is probably tricuspid. ?There is no evidence of aortic haim ve stenosis. ?There is no evidence of aortic reg urgitation. Mitral Valve: ? The mitral valve stanislaw ears normal in structure and function. ?There is trace mitral regurgitatio n present. Tricuspid Valve: ? The tricuspid haim ve appears normal in structure and function. ?There is no evidence of tricuspid valve regurgitation present. Pulmonic Valve: ? The pulmonic valve is probably normal. Pericardium: ? The pericardium appea rs normal and there is no evidence of a pericardial effusion. ?No pericardial fat pad is visualiz ed. Aorta: ? The aortic root is normal i n size. ?The ascending aorta is normal in s ize. Pulmonary Artery: ? The main pulmona ry artery appears normal. Venous: ? The inferior vena cava stanislaw ears normal in size. ?There is a greater than 50% respir atory change in the inferior vena cava dimension. Misc: ? See remainder of report for additional findings. ?Two-dimensional echo, spectral Dop pler and color Doppler performed. ?Optison contrast (one 3 ml vial) w as used to enhance endocardial definition. Excess contrast was discarde d. Chambers 2D ?Value ?Units (Range) ? Ao root diameter (2D3 ?cm (2.1 - 3.6) ? Ascending Ao ?3.4 ?cm (2 - 3.5) ? Volumes/Mass ?Value ?Units (Range) ? LA Area 4 CH ?13.7 ? cm2 (<21) ? RA AREA 4CH ? 12.5 ? cm2 ? LA ESV SP 4CH (MOD) 31.1 ? ml ? LA ESV SP 2CH (MOD) 34 ? ml ? Diastolic/Systolic Function ?Value ?Units (Range) ? MV E-wave Vmax ?0.7 ?m/sec ? MV deceleration [id number] ?msec ? MV A-wave Vmax ?0.7 ?m/sec ? MV E:A ratio ?1 ?ratio ? LV E:e' septal ratio10 ? ratio ? Tricuspid Valve ?Value ?Units (Range) ? TAPSE ? 2.2 ?cm ? Wall Motion: Segment Name ?Rest ? Base-Anteroseptal ?? Normal ? Base-Anterior ? Normal ? Base-Anterolateral ??Normal ? Base-Posterolateral Normal ? Base-Inferior ? Akinetic ? Base-Inferoseptal ?? Akinetic ? Mid-Anteroseptal ?Normal ? Mid-Anterior ?Normal ? Mid-Anterolateral ?? Normal ? Mid-Posterolateral ??Normal ? Mid-Inferior ?Hypokinetic ? Mid-Inferoseptal ?Hypokinetic ? Willard-Septal ? Normal ? Willard-Anterior ? Normal ? Willard-Lateral ?Normal ? Willard-Inferior ? Normal ? Willard-Tip ?Normal ? This report has been electronically sign ed by: _ Frankie Gregorio MD ? 06/26/2015 17:32:19 Images reviewed and interpretation verif iepeter [facility] Cardiac Ultrasound Laboratory Procedure Note Frankie Gregorio MD - 06/26/2015For matting of this note might be different from the original. Procedure: Transthoracic Echocardiogram Patient: MAIN Chen (Age): 0 1955(59y) Med Rec#: [id number] Sex: M Site Loc: [facility] Ht / Wt: 193(cm)/107(kg) [facility] BSA: 2.38 Study Date: 06/26/2015 Pt. Type: Inpatie nt Tape: Referring: SAMI CARDOZO Referring: Frankie Gregorio ([id number] ) Reading: Frankie Gregorio ([id number]) Presetter Operator: Allison Miller BA, [facility] Diagnosis: *ICD-10-PCS ST elevation (STEMI) myocar dial infarction involving other coronary artery of inferior wall (I21.19 ) CPT Codes: *Echo Full (82104) *Spectral Doppler (91642) *Color Doppler (48500) *Optison ([id number]) BP: 147/91 SUMMARY: 1. Technically limited study despite the use of contrast. 2. The left ventricular chamber size is normal. Left ventricular wall thickness is normal. There is normal barbara bal left ventricular systolic function. Ejection fraction is estimated to be 55%. There are left ventricular segmental wall motion abnorm alities present, as shown in the diagram below. Doppler assessment is con sistent with normal left sided filling pressure. 3. Right ventricular chamber size, wall thickness, and systolic function are within normal limits. Pulmonary amisha ry pressures could not be assessed due to inadequate tricuspid reg urgitation jet. 4. There is no hemodynamically significa nt valvular disease. 5. See remainder of report for additiona l findings. Findings : Study Quality: Technically limited Left Ventricle: The left ventricular rudi mber size is normal. Left ventricular wall thickness is norm al. There is normal global left ventricular systolic function. Ejection fraction is estimated to be 55%. There are left ventricular segmental wa ll motion abnormalities present, as shown in the diagram below. Doppler assessment is consistent with n ormal left sided filling pressure. The mid inferior, and mid inferoseptal wall segments are hypokinetic (score 2). The basal inferior, and basal inferosep toni wall segments are akinetic (score 3). Overall wallmotion score index is 1.38 Left Atrium: The left atrium is normal i n size. (14 ml/m2 by volume index) Right Ventricle: Right ventricular chamb er size, wall thickness, and systolic function are within normal limi ts. Pulmonary artery hypertension could not be assessed due to inadequate tricuspid regurgitation jet. Right Atrium: The right atrium appears n ormal. Aortic Valve: The aortic valve is probab ly tricuspid. There is no evidence of aortic valve st enosis. There is no evidence of aortic regurgit ation. Mitral Valve: The mitral valve appears n ormal in structure and function. There is trace mitral regurgitation pre sent. Tricuspid Valve: The tricuspid valve stanislaw ears normal in structure and function. There is no evidence of tricuspid valve regurgitation present. Pulmonic Valve: The pulmonic valve is pr obably normal. Pericardium: The pericardium appears nor mal and there is no evidence of a pericardial effusion. No pericardial fat pad is visualized. Aorta: The aortic root is normal in size . The ascending aorta is normal in size. Pulmonary Artery: The main pulmonary art divya appears normal. Venous: The inferior vena cava appears n ormal in size. There is a greater than 50% respiratory change in the inferior vena cava dimension. Misc: See remainder of report for additi onal findings. Two-dimensional echo, spectral Doppler and color Doppler performed. Optison contrast (one 3 ml vial) was us ed to enhance endocardial definition. Excess contrast was discarde d. Chambers 2D Value Units (Range) Ao root diameter (2D3 cm (2.1 - 3.6) Ascending Ao 3.4 cm (2 - 3.5) Volumes/Mass Value Units (Range) LA Area 4 CH 13.7 cm2 (<21) RA AREA 4CH 12.5 cm2 LA ESV SP 4CH (MOD) 31.1 ml LA ESV SP 2CH (MOD) 34 ml Diastolic/Systolic Function Value Units (Range) MV E-wave Vmax 0.7 m/sec MV deceleration [id number] msec MV A-wave Vmax 0.7 m/sec MV E:A ratio 1 ratio LV E:e' septal ratio10 ratio Tricuspid Valve Value Units (Range) TAPSE 2.2 cm Wall Motion: Segment Name Rest Base-Anteroseptal Normal Base-Anterior Normal Base-Anterolateral Normal Base-Posterolateral Normal Base-Inferior Akinetic Base-Inferoseptal Akinetic Mid-Anteroseptal Normal Mid-Anterior Normal Mid-Anterolateral Normal Mid-Posterolateral Normal Mid-Inferior Hypokinetic Mid-Inferoseptal Hypokinetic Willard-Septal Normal Willard-Anterior Normal Willard-Lateral Normal Willard-Inferior Normal Willard-Tip Normal This report has been electronically sign ed by: _ Frankie Gregorio MD 06/26/2015 17:32: 19 Images reviewed and interpretation [facility] Frankie Gregorio MD ECHO ORDERABLES (ABNORMAL) Cardiac Enzymes (06/26/2015 12:20 PM EDT) P athologist Signature Troponin-T 4.52 (H) <=0.03 [facility] ng/mL [facility] Comment: result rechecked- ab 0.03 ng/mL: Represents the 99th percenti le upper reference limit for normals. >0.03 ng/mL: Elevated cardiac troponin T level indicative of myocardial damage. Diagnosis of acute, evolving or recent M I requires a typical rise and gradual fall of cTnT with at least ONE of the fo llowing: a) Ischemic symptoms b) Development of pathologic Q waves on the ECG c) ECG changes indicative of eschemia (S -T segment elevation/depression) d) Coronary artery intervention Serial bloods should be obtained for nancy ting on admission, at 6 to 9 hrs and again at 12 to 24 hrs if earlier samples are negative and the clinical index of suspicion is high. Reference: [Myocardial infarction redefined? a consensus document of the Joint Society of Cardiology/[employer] [employer] o f [employer]iology Committee for the redefinition of myocardial infarction. ? ?Journal of the [place] College [employer] Cardiology 2000; 36: 959-969] CK, Total 1,472 (H) 0 - 200 unit/L [facility] Specimen Anatomical Collection Method Collection Time Receive d Time (Source) Location / / Volume Laterality Blood specimen 06/26/2015 12:20 6 (specimen) PM EDT 12:30 PM EDT Resulting Agency Comment Spec In Lab Frankie Gregorio MD CHEMISTRY ORDERABLES Performing Organization Address City/State/[place] [address] XR Chest Pa or AP- 1 View (06/26/2015 8:31 AM EDT) Anatomical Region Laterality Modality Chest N/A Digital Radiography Specimen (Source) Anatomical Location Collection Method / Collectio n Time Received Time / Laterality Volume Narrative 06/26/2015 12:22 PM EDT EXAMINATION: XR CHEST PA OR AP 1 VIEW CLINICAL HISTORY: s/p STEMI, baseline TECHNIQUE: Single AP view of the chest. COMPARISON: June 26, 2015. FINDINGS: Lungs remain clear. No pleural effusion. Normal size of the heart and width of the mediastinum. Mild prominence of the central pulmonary vessels is compatible with mild pulmonary vascular congestion, but no overt edema. Procedure Note Christel Zelaya MD - 2015 EXAMINATION: XR CHEST PA OR AP 1 VIEW CLINICAL HISTORY: s/p STEMI, baseline TECHNIQUE: Single AP view of the chest. COMPARISON: June 26, 2015. FINDINGS: Lungs remain clear. No pleural effusion. Normal size of the heart and width of the mediastinum. Mild prominence of the central pulmonary vessels is compatible with mild pulmonary vascular congestion, but no overt edema. Frankie Gregorio MD IMG DX ORDERABLES (ABNORMAL) Differential, Automated (06/26/2015 5:50 AM EDT) [facility] Method Time Signature Neutrophils % 83.4 % [facility] Neutr Abs (ANC) 8.72 (H) 1.50 - [facility] 6.30 [facility] x10(3)/[facility] LABORATORY Lymphocytes % 13.4 % [facility] Lymphocytes Abs 1.4 1.0 - 3.6 [facility] x10(3)/[facility] LABORATORY Monocytes % 2.8 % [facility] Monocyte Abs 0.3 0.2 - 1.0 [facility] x10(3)/[facility] LABORATORY Eosinophils % 0.1 % [facility] Eosinophils Abs 0.0 0.0 - 0.5 [facility] x10(3)/[facility] LABORATORY Basophils % 0.1 % [facility] Basophils Abs 0.0 0.0 - 0.2 [facility] x10(3)/[facility] LABORATORY Immature Gran % 0.20 % [facility] Comment: Immature granulocytes(IG's)percentage an d absolute count will include metamyelocytes, myelocytes, and promyelo cytes. Blood smears from CBCs yielding IG's will be scanned manually for concor dance. If this scan disagrees with the automated IG or if promyelocytes are not ed, a manual differential will be performed. Ary Gran Abs 0.02 0.00 - 0.05 x10(3)/[facility] LABORATORY Specimen Anatomical Collection Method Collection Time Receive d Time (Source) Location / / Volume Laterality Blood specimen 06/26/2015 5:50 AM 016 5:54 (specimen) EDT AM EDT Resulting Agency Comment Spec In Lab Frankie Gregorio MD HEMATOLOGY ORDERABLES Performing Organization Address City/State/ZIP Code Phon e [place] [address] (ABNORMAL) Hemogram (06/26/2015 5:50 AM EDT) P athologist Signature WBC 10.4 (H) 4.0 - 10.0 [facility] LABORATORY RBC 5.01 4.63 - TEMI DANITA 6.08 [facility] x10(6)/[facility] LABORATORY Hemoglobin 14.3 13.7 - [facility] 17.5 gm/dL [facility] Hematocrit 42.8 40.0 - [facility] 51.0 % [facility] MCV 85.4 79.0 - [facility] DANITA 92.0 [facility] LABORATORY MCH 28.5 25.6 - [place] [facility] 32.2 pg [facility] MCHC 33.4 32.0 - [facility] 36.5 gm/dL [facility] Platelets 211 145 - 370 [facility] x10(3)/[facility] LABORATORY RDWSD 40.6 35.0 - [facility] DANITA 46.0 [facility] LABORATORY RDWCV 13.1 10.9 - [facility] 14.4 % [facility] MPV 11.3 9.0 - 12.0 [facility] Specimen Anatomical Collection Method Collection Time Receive d Time (Source) Location / / Volume Laterality Blood specimen 06/26/2015 5:50 AM 016 5:54 (specimen) EDT AM EDT Resulting Agency Comment Spec In Lab Frankie Gregorio MD HEMATOLOGY ORDERABLES Performing Organization Address City/State/[place] [address] (ABNORMAL) Magnesium (06/26/2015 5:30 AM EDT) athologist Signature Magnesium 0.64 (L) 0.69 - 1.07 [facility] mmol/L [facility] Specimen Anatomical Collection Method Collection Time Receive d Time (Source) Location / / Volume Laterality Blood specimen Venous Draw / 06/26/2015 5:30 AM 2015 5:37 (specimen) Unknown EDT AM EDT Resulting Agency Comment Spec In Lab Yoan Vera II, MD CHEMISTRY ORDERABLES Performing Organization Address City/State/[place] [address] (ABNORMAL) Basic Metabolic Panel (non-fasting) (06/26/2015 5:30 AM EDT) athologist Signature Glucose Lvl 108 65 - 199 [facility] mg/dL [facility] Comment: Diabetes: >=200 mg/dL plus symp toms BUN 9 (L) 10 - 20 mg/dL [facility]ORATORY Creatinine 0.85 0.80 - 1.50 mg/dL [facility] Comment: Please note that the pediatric reference intervals supplied above were not validated at [facility]. Results from pediatri c patients should be interpreted in conjunction to the patient's age, height and muscle mass. Sodium 141 135 - 145 mmol/L [facility] Potassium 3.6 3.5 - 5.0 mmol/L [facility] Comment: Please note: ??Patients with WBC >100,00 0 may have falsely elevated Potassium levels. ??For accurate Potassium quantif ication in these patients send serum separator tube (gold top) for subsequent determinations. ??Contact the Clinical Chemistry Laboratory if there are any qu estions. Chloride 107 98 - 107 mmol/L [facility] CO2 19 (L) 22 - 31 mmol/L [facility] Anion Gap 15 5 - 15 mmol/L [facility] Calcium 7.1 (L) 8.5 - 10.5 mg/dL [facility] Estimated GFR >60 >=60 [facility] Comment: This estimated GFR (eGFR) value was calc ulated using the MDRD equation which has been validated on patients between t he ages of 18 and 70. The MDRD should not be used to assess kidney function in patients < 18 years of age or in patients with extremes of body mass, or in patients with acute kidney failure. This value should be multiplied by 1.2 f or patients. For further information please copy and past e the following links into your internet browser. [email or web address] Specimen Anatomical Collection Method Collection Time Receive d Time (Source) Location / / Volume Laterality Blood specimen Venous Draw / 06/26/2015 5:30 AM 2015 5:37 (specimen) Unknown EDT AM EDT Resulting Agency Comment Spec In Lab Yoan Vera II, MD CHEMISTRY ORDERABLES Performing Organization Address City/[facility] [place] [address] (ABNORMAL) Cardiac Enzymes (06/26/2015 5:30 AM EDT) athologist Signature Troponin-T 5.13 (H) <=0.03 [facility] ng/mL [facility] Comment: 0.03 ng/mL: Represents the 99th percenti le upper reference limit for normals. >0.03 ng/mL: Elevated cardiac troponin T level indicative of myocardial damage. Diagnosis of acute, evolving or recent M I requires a typical rise and gradual fall of cTnT with at least ONE of the fo llowing: a) Ischemic symptoms b) Development of pathologic Q waves on the ECG c) ECG changes indicative of eschemia (S -T segment elevation/depression) d) Coronary artery intervention Serial bloods should be obtained for nancy ting on admission, at 6 to 9 hrs and again at 12 to 24 hrs if earlier samples are negative and the clinical index of suspicion is high. Reference: [Myocardial infarction redefined? a consensus document of the Joint Society of Cardiology/[place] [employer] o f [employer]iology Committee for the redefinition of myocardial infarction. ? ?Journal of the [place] [employer] 2000; 36: 959-969] CK, Total 1,254 (H) 0 - 200 unit/L [facility] Specimen Anatomical Collection Method Collection Time Receive d Time (Source) Location / / Volume Laterality Blood specimen 06/26/2015 5:30 AM 016 5:36 (specimen) EDT AM EDT Resulting Agency Comment Spec In Lab Yoan Vera II, MD CHEMISTRY ORDERABLES Performing Organization Address City/[facility]/[place] [address] CARDIAC CATHETERIZATION (06/26/2015 4:31 AM EDT) Anatomical Region Laterality Modality Other Specimen (Source) Anatomical Location Collection Method / Collectio n Time Received Time / Laterality Volume Narrative 06/26/2015 10:15 AM EDT ?[facility] ? Cardiac Cathete rization/Intervention Report ? Patient Name: Jose M Garibay. ? Procedure Date: 06/26/2015 ? A #: [id number] ? Primary Physician: Yoan Vera ? Case #: [id number] ? File Name: [id number] ? Catheterization Order Number: [id number] ? [facility] ? Final Report [place], [place] ? Patient Name: ? Jose M Helm sfield ? ID#: ?[id number] ? : ?1955 ? Procedure Date: ? June 26, 2015 ? Case #: ? [id number] ? Room: ? 5 ? Case Physician: ? Yoan W Nil es, M.D. ?Start: ?02:45 ? Admission: ??06/26/2015 ? Referring ? Yara peck M.D. ? Physicians: ?Kemi AlvarezDBob ? Procedures: ?* Coronary Angiography ?* Left Heart Catheterization ?* Coronary Stent Insertion ?* Coronary Embolic Protection/T hrombectomy ? Pre Case Status: ?These procedures were performed on an emergent basis. ? History ?Jose M M. Brinsfield is a 59 ye ar old man. He is status post an acute ST ?elevation myocardial infarction . The patient also has a history of an ?abnormal EKG. Prior to the init iation of this procedure, the patient was ?designated as ASA Class IV. ? Patient Status at Catheterization: ?The patient presented with: ST- Elevation PR (STEMI) or equivalent (w/i 7 ?days). [employer] angina class was IV. No stress or ?imaging studies were performed prior to this procedure ? Technique: ?A 6Fr sheath was inserted in th e right femoral artery utilizing the ?Seldinger technique. The left c oronary artery was injected utilizing a ?6Fr JL 4 catheter. Coronary apple nt insertion and coronary embolic ?protection/thrombectomy were pe rformed and the equipment utilized will be ?described in the intervention s ummary section. 8,000 units of heparin ?were administered. Intracoronar y nitroglycerin was given during this ?case. A total of 300cc of Omnip aque were opened and 300cc of Omnipaque ?were administered. Radiation: F luoro time was 19.1 minutes, dose area ?product was 130,372 mGYcm2 and air kerma was 3,079 mGY. ?The patient received the follow ing medications prior to and during the ?procedure: Clopidogrel and Unfr actionated Heparin (any). ? Hemodynamics: ?Left Heart Pressures ? Resting: ? Syst D iast ? EDP ?a ?v ? m ?Ao 140 ?? 81 ?107 ? Post Contrast: ? Syst D iast ? EDP ?a ?v ? m ?Ao 137 ?? 87 ?LV 137 ? 26 ? Coronary Angiography: ?Dominance: Right ?Left Main ? There was mild diffuse d isease of the entire vessel segment of the ? left main artery. ?Left Anterior Descending ? There was mild diffuse d isease of the entire vessel segment of the ? left anterior descending artery (LAD). ?Left Circumflex ? There was mild diffuse d isease of the entire vessel segment of the ? left circumflex artery ( LCX). ??The mid segment of the LCX was ? ectatic. ?Right Coronary Artery ? There was mild diffuse d isease of the entire vessel segment of the ? right coronary artery (R CA). ??The distal segment of the RCA had a ? single discrete 60% sten osis. ??There was evidence of thrombus in ? this lesion. ? There was a single discr ete total occlusion of the mid segment of ? the right artioventricul ar continuation (KELLEN Cont) of the RCA. ? There was evidence of th rombus in this lesion. ? Indication for Intervention: ?Coronary intervention was indic ated for primary therapy for an acute ?myocardial infarction. Left Alex tricular Ejection fraction was not ?assessed. The priority for the procedure was Emergent. The NCDR ?indication for the procedure wa s STEMI (Immediate PCI for STEMI). ? Intervention Summary: ?Right Coronary Artery ? Distal 60% ? Thrombectomy an d stent insertion were performed on the 60% ? stenosis in the distal segment of the RCA. This was a de kain ? lesion. Accordi ng to the ACC/AHA classification system, this ? lesion was a ty pe B1 moderate risk lesion. Primary prevention ? of restenosis w as the indication for stent insertion. Vessel ? flow pre interv ention was ARELI 3. ? Thrombectomy wa s accomplished through a 6 Fr FR 4 guide ? utilizing a Pro nto. ? Stent insertion was accomplished through a 6 Fr. JR 4 guide. ? A premounted 4. 50 x 16 mm Rebel (BMS) was deployed. ??Following ? stent deploymen t, the lesion was dilated using a 5.00mm NC ? EMERGE 15 MM ba lloon with a maximum inflation pressure of 14 ? atmospheres. ? The final outco me was defined as successful. A coronary ? arteriolar vaso dilator was administered as part of the ? intervention on this lesion. There was no residual stenosis ? following this intervention. The final ARELI flow was 3. ?Right Artioventricular Continua tion of the RCA ? Mid 100% ? Thrombectomy an d stent insertion were performed on the total ? occlusion in th e mid segment of the KELLEN Cont. This was a de ? kain lesion. Th is lesion was designated a type B1 moderate ? risk lesion bas ed on ACC/AHA classification system. Primary ? prevention of r estenosis was the indication for stent ? insertion. This was the culprit lesion. Vessel flow pre ? intervention wa s ARELI 0. ? Thrombectomy nina s accomplished through a 6 Fr JR 4 guide ? utilizing a Pro nto V4. ? Stent insertion was accomplished through a 6 Fr. JR 4.0 guide. ?The lesion nina s predilated with a 2.50mm APEX 12 MM balloon ? with a maximum inflation pressure of 15 atmospheres. ??A ? premounted 2.50 x 23 mm Svetlana Pikeine (LILLIAN) was deployed with ? a maximum infla tion pressure of 13 atmospheres. ??Following ? stent deploymen t, the lesion was dilated using a 3.00mm NC ? TREK 15 MM ball oon with a maximum inflation pressure of 16 ? atmospheres. ? Another stent i nsertion was accomplished through a 6 Fr. JR 4 ? guide. ??A beni ounted 3.50 x 12 mm Svetlana Moise (LILLIAN) was ? deployed with a maximum inflation pressure of 12 atmospheres. ? Following stent deployment, the lesion was dilated using a ? 3.50mm NC TREK 15 MM balloon with a maximum inflation pressure ? of 15 atmospher es. ? The final outco me was defined as successful. A coronary ? arteriolar vaso dilator was administered as part of the ? intervention on this lesion. There was no residual stenosis ? following this intervention. The final ARELI flow was 3. ? Vascular Access: ?Vascular Access Angiogram: ? A selective angiogram at the right femoral artery revealed no ? significant obstructive disease. ?Vascular Access Management: ? A 6 Fr Perclose was depl oyed at the right femoral artery access ? site. This device was john ccessful. ? Conclusions: ?* One vessel coronary artery di sease (RCA) ?* Successful thrombectomy and s tent insertion of the mid KELLEN Cont lesion ?* Successful thrombectomy and s tent insertion of the distal RCA lesion ?* Drug eluting stent (LILLIAN) impl anted. ? Complications/Events: ?The patient had no complication s during these procedures. ? Recommendations: ?The patient's medical regimen w as changed as follows: Drug eluting stent ?(LILLIAN) implanted. Clopidogrel 30 0 mg PO administered in the cath ?lab.Clopidogrel 300 mg PO admin istered prior to the dental laboratory technician. Continue ?ASA 81 mg po daily, clopidogrel 75 mg po daily x 12 mo. ?The attending physician was presen t for the entire procedure. ?Dr. Yoan Vera M.D. perfor med the coronary angiography, left heart ?catheterization, stent insertion-c oronary and embolic ?protection/thrombectomy-coronary. ? Yoan Vera M.D. ? Electronically Signed by: Yoan jay M.D. ? Report Finalized: 06/26/2015 ??04:46 ? Report Last Ammended: 06/28/2015 ??09:00 ? Procedure Note Yoan Vera II, MD - 06/28/2015Fo rmatting of this note might be different from the original. [facility] Cardiac Catheterization/Intervention Re port Patient Name: Jose M Garibay Procedure Date: 06/26/2015 A #: [id number] Primary Physician: Yoan Vera Case #: [id number] File Name: [id number] Catheterization Order Number: [id number] [facility] [place], [place] Patient Name: Jose M Garibay ID#: [id number] : 1955 Procedure Date: June 26, 2015 Case #: [id number] Room: 5 Case Physician: Yoan Vera M.D. Start: 02:45 Admission: 06/26/2015 Referring Yara Gomez M.D. Physicians: Sami Cardozo M.D. Procedures: * Coronary Angiography * Left Heart Catheterization * Coronary Stent Insertion * Coronary Embolic Protection/Thrombect calixto Pre Case Status: These procedures were performed on an e mergent basis. History Jose M Garibay is a 59 year old m an. He is status post an acute ST elevation myocardial infarction. The aquilino santa also has a history of an abnormal EKG. Prior to the initiation o f this procedure, the patient was designated as ASA Class IV. Patient Status at Catheterization: The patient presented with: ST-Elevatio n PR (STEMI) or equivalent (w/i 7 days). [place] angina class was IV. No stress or imaging studies were performed prior to this procedure Technique: A 6Fr sheath was inserted in the right femoral artery utilizing the Seldinger technique. The left coronary artery was injected utilizing a 6Fr JL 4 catheter. Coronary stent inser tion and coronary embolic protection/thrombectomy were performed and the equipment utilized will be described in the intervention summary s ection. 8,000 units of heparin were administered. Intracoronary nitrog lycerin was given during this case. A total of 300cc of Omnipaque wer e opened and 300cc of Omnipaque were administered. Radiation: Fluoro ti me was 19.1 minutes, dose area product was 130,372 mGYcm2 and air kerm a was 3,079 mGY. The patient received the following medi cations prior to and during the procedure: Clopidogrel and Unfractionat ed Heparin (any). Hemodynamics: Left Heart Pressures Resting: Syst Diast EDP a v m Ao 140 81 107 Post Contrast: Syst Diast EDP a v m Ao 137 87 LV 137 26 Coronary Angiography: Dominance: Right Left Main There was mild diffuse disease of the e ntire vessel segment of the left main artery. Left Anterior Descending There was mild diffuse disease of the e ntire vessel segment of the left anterior descending artery (LAD). Left Circumflex There was mild diffuse disease of the e ntire vessel segment of the left circumflex artery (LCX). The mid s egment of the LCX was ectatic. Right Coronary Artery There was mild diffuse disease of the e ntire vessel segment of the right coronary artery (RCA). The distal segment of the RCA had a single discrete 60% stenosis. There was evidence of thrombus in this lesion. There was a single discrete total occlu [place] of the mid segment of the right artioventricular continuation (KELLEN Cont) of the RCA. There was evidence of thrombus in this lesion. Indication for Intervention: Coronary intervention was indicated for primary therapy for an acute myocardial infarction. Left Ventricular Ejection fraction was not assessed. The priority for the procedur e was Emergent. The NCDR indication for the procedure was STEMI (Immediate PCI for STEMI). Intervention Summary: Right Coronary Artery Distal 60% Thrombectomy and stent insertion were p erformed on the 60% stenosis in the distal segment of the R CA. This was a de kain lesion. According to the ACC/AHA classi fication system, this lesion was a type B1 moderate risk lesi on. Primary prevention of restenosis was the indication for st ent insertion. Vessel flow pre intervention was ARELI 3. Thrombectomy was accomplished through a 6 Fr FR 4 guide utilizing a Pronto. Stent insertion was accomplished throug h a 6 Fr. JR 4 guide. A premounted 4.50 x 16 mm Rebel (BMS) w as deployed. Following stent deployment, the lesion was dilate d using a 5.00mm NC EMERGE 15 MM balloon with a maximum inf lation pressure of 14 atmospheres. The final outcome was defined as succes sful. A coronary arteriolar vasodilator was administered as part of the intervention on this lesion. There was no residual stenosis following this intervention. The final ARELI flow was 3. Right Artioventricular Continuation of the RCA Mid 100% Thrombectomy and stent insertion were p erformed on the total occlusion in the mid segment of the KELLEN Cont. This was a de kain lesion. This lesion was designated a type B1 moderate risk lesion based on ACC/AHA classifica tion system. Primary prevention of restenosis was the indica tion for stent insertion. This was the culprit lesion. Vessel flow pre intervention was ARELI 0. Thrombectomy was accomplished through a 6 Fr JR 4 guide utilizing a Pronto V4. Stent insertion was accomplished throug h a 6 Fr. JR 4.0 guide. The lesion was predilated with a 2.50mm APEX 12 MM balloon with a maximum inflation pressure of 15 atmospheres. A premounted 2.50 x 23 mm Xience Alpine ( LILLIAN) was deployed with a maximum inflation pressure of 13 atmo spheres. Following stent deployment, the lesion was dilate d using a 3.00mm NC TREK 15 MM balloon with a maximum infla tion pressure of 16 atmospheres. Another stent insertion was accomplishe d through a 6 Fr. JR 4 guide. A premounted 3.50 x 12 mm Xience Alpine (LILLIAN) was deployed with a maximum inflation press ure of 12 atmospheres. Following stent deployment, the lesion was dilated using a 3.50mm NC TREK 15 MM balloon with a max imum inflation pressure of 15 atmospheres. The final outcome was defined as succes sful. A coronary arteriolar vasodilator was administered as part of the intervention on this lesion. There was no residual stenosis following this intervention. The final ARELI flow was 3. Vascular Access: Vascular Access Angiogram: A selective angiogram at the right femo ral artery revealed no significant obstructive disease. Vascular Access Management: A 6 Fr Perclose was deployed at the [facility] ([place], [place]) femoral artery access site. This device was successful. Conclusions: * One vessel coronary artery disease (R CA) * Successful thrombectomy and stent ins ertion of the mid KELLEN Cont lesion * Successful thrombectomy and stent ins ertion of the distal RCA lesion * Drug eluting stent (LILLIAN) implanted. Complications/Events: The patient had no complications during these procedures. Recommendations: The patient's medical regimen was mosquera ed as follows: Drug eluting stent (LILLIAN) implanted. Clopidogrel 300 mg PO administered in the dental laboratory technician.Clopidogrel 300 mg PO administered prior to the dental laboratory technician. Continue ASA 81 mg po daily, clopidogrel 75 mg p o daily x 12 mo. The attending physician was present for the entire procedure. Dr. Yoan Vera M.D. performed t he coronary angiography, left heart catheterization, stent insertion-brannon ry and embolic protection/thrombectomy-coronary. Yoan Vera M.D. Electronically Signed by: Yoan jay M.D. Report Finalized: 06/26/2015 04:46 Report Last Ammended: 06/28/2015 09:00 Yoan Vera II, MD CARDIAC CATH ORDERABLES EKG 12 Lead (06/26/2015 4:21 AM EDT) Component Value Ref Range Test Analysis Performed Pathologis t Method Time At Signature Ventricular rate 76 BPM MUSE SYSTEM Atrial Rate 76 BPM MUSE SYSTEM P-R Interval 146 ms MUSE SYSTEM QRS Duration 80 ms MUSE SYSTEM Q-T Interval 416 ms MUSE SYSTEM QTC Calculated 468 ms MUSE SYSTEM (Bezet) Calculated P Crosby 47 degrees MUSE SYSTEM Calculated R Crosby 4 degrees MUSE SYSTEM Calculated T Crosby 13 degrees MUSE SYSTEM INTERPRETATION Normal sinus rhythm MUSE SYSTEM Inferior infarct , age undetermined Abnormal ECG No previous ECGs available Confirmed by MD Vyas Timothy ([id number]) on 06/28/2015 9:40:26 A M Specimen Anatomical Collection Method Collection Time Receive d Time (Source) Location / / Volume Laterality 06/26/2015 4:21 AM 6 9:40 EDT AM EDT Frankie Gregorio MD ECG ORDERABLES Performing Organization Address City/State/ZIP Code Phon e Number MUSE SYSTEM documented in this encounter Visit Diagnoses Not on filedocumented in this encounter Admitting Diagnoses Diagnosis STEMI (ST elevation myocardial infarctio n) Acute myocardial infarction, unspecified site, episode of care unspecified documented in this encounter Administered Medications Inactive Administered Medications - up to 3 most recent administrations Medication Order MAR Action Action Date Dose Rate Site clopidogrel (PLAVIX) tablet Given 06/26/2015 3:15 AM EDT 300 mg ONCE PRN, Starting on 06/26/15 at 0315, Until 06/26/15 at 0430, Intra-Operative (Intra-Procedure), Routine fentaNYL 50 mcg/mL multi-dose injection Given 06/26/2015 3:01 AM EDT 25 mcg ONCE PRN, Starting on 06/26/15 at 0301, Until 06/26/15 at 0306, Cath (Intra-Procedure), Routine fentaNYL 50 mcg/mL multi-dose injection Given 06/26/2015 4:18 AM EDT 25 mcg ONCE PRN, Starting on 06/26/15 at 0418, Until 06/26/15 at 0430, Intra-Operative (Intra-Procedure), Routine heparin (porcine) injection Given 06/26/2015 3:28 AM EDT 4,000 Units ONCE PRN, Starting on 06/26/15 at 0318, Until 06/26/15 at 0430, Cath (Intra-Procedure), Routine Given 06/26/2015 3:18 AM EDT 4,000 Units iohexol (OMNIPAQUE) 350 mg/mL solution Given 06/26/2015 4:28 AM EDT 300 mLs ONCE PRN, Starting on 06/26/15 at 0428, Until 06/26/15 at 0430, Cath (Intra-Procedure), Routine midazolam (PF) (VERSED) 1 mg/mL multi-dose Given 06/26/2015 3:02 AM EDT 1 mg injection ONCE PRN, Starting on 06/26/15 at 0302, Until 06/26/15 at 0306, Cath (Intra-Procedure), Routine niCARdipine (CARDENE) in sodium chloride Given 06/26/2015 3:55 A M EDT 150 mcg 0.9% injection ONCE PRN, Starting on 06/26/15 at 0355, Until 06/26/15 at 0430, Intra-Operative (Intra-Procedure), Routine Given 06/26/2015 3:40 AM EDT 200 mcg nitroGLYcerin 100 mcg/mL intracoronary Given 06/26/2015 3:46 AM EDT 200 mcg dilution ONCE PRN, Starting on 06/26/15 at 0346, Until 06/26/15 at 0430, Cath (Intra-Procedure), Routine documented in this encounter Active and Recently Administered Medications Times are shown in EDT. Scheduled Medication Order 06/26/2015 06/27/2015 06/28/2015 aspirin EC tablet 81 mg 0847 (Given - Provider: Genie Henry RN) 0923 (Given - Provider: Nayana Queen, RN) 81 mg, Oral, DAILY, First dose on Sun at 0900, Until Discontinued, Routine atorvastatin (LIPITOR) tablet 80 mg 06 (Given - Prov ider: Tracey Tan RN)2020 (Given - Provider: Genie Terry RN - Comment: missing dose) 1748 (Given - Provider: Genie Henry RN) 80 mg, Oral, EVERY EVENING, First dose o n 06/26/15 at 0615, Until Discontinued, Routine clopidogrel (PLAVIX) tablet 75 mg (CANCELED) 0847 (Given - Provider: Genie Henry RN) 0923 (Given - Provider: Nayana Queen, JONEL) 75 mg, Oral, DAILY, First dose on Sun at 0900, Until Discontinued, Routine lisinopril (PRINIVIL;ZESTRIL) tablet 10 mg 0624 (Given - Provider: Tracey Tan RN) 0847 (Given - Provider: Genie Henry RN) 0923 (Given - Provider: Nayana Queen, JONEL) 10 mg, Oral, DAILY, First dose on Sat at 0630, Until Discontinued, Routine magnesium sulfate 2 g in sterile water 50 mL (COMPLETE D) 08 (Given - Provider: Leslee Fong RN) 2 g, Intravenous, ONCE, 1 dose, 06/26/15 at 0815, for 120 Min utes meTOPROLOL (LOPRESSOR) tablet 12.5 mg (CANCELED) 0600 (Given - Provider: Tracey Tan, JONEL)1200 (Not Given - Provider: Leslee Fong RN - Reason: Medication Discontinued) 12.5 mg, Oral, EVERY 6 HOURS SCHEDULED, First dose on 06/26/15 at 0615, Until Discontinued, Hold for SBP < 100 or HR < 60, Routine meTOPROLOL succinate (TOPROL-XL) XL tablet 100 mg 1155 (Given - Provider: Nayana Queen, JONEL) 100 mg, Oral, DAILY, First dose on Mon at 1200, Until Discontinued, DO NOT CRUSH OR OPEN, Routine meTOPROLOL tartrate (LOPRESSOR) tablet 25 mg (CANCELED ) 1259 (Given - Provider: Leslee Fong RN)1841 (Given - Provider: Nilam Mendenhall RN)2318 (Given - Provider: eGnie Terry, JONEL) 0637 (Given - Provider: Geine Terry RN )1157 (Given - Provider: Genie Henry, RN)1748 (Given - Provider: Genie Henry, RN)2335 (Given - Provider: Brendan Paul RN) 0537 (Given - Provider: Brendan Paul RN) 25 mg, Oral, EVERY 6 HOURS SCHEDULED, Fi rst dose on 06/26/15 at 1315, Until Discontinued, Hold for SBP < 100 or HR < 60, Routine potassium chloride (K-DUR/KLOR-CON) extended release t ablet 20 mEq (COMPLETED) 0823 (Given - Provider: Leslee Fong RN)1052 (Given - Provider: Leslee Fong RN) 20 mEq, Oral, EVERY 3 HOURS, 2 doses, Fi rst dose on 06/26/15 at 0815, Last dose on 06/26/15 at 1115, Routine sodium chloride 0.9 % flush 5 mL (CANCELED) 0824 (Give n - Provider: Leslee Fong RN) 5 mL, Intravenous, 2 TIMES DAILY, First dose on 06/26/15 at 0900, Until Discontinued, Routine Continuous Medication Order 06/26/2015 06/27/2015 06/28/2015 sodium chloride 0.45% infusion () 0602 (New Bag - Provider: Tracey Tan RN)0800 (Rate/Dose Verify - Provider: Leslee Fong RN)1000 (Rate/Dose Verify - Provider: Leslee Fong RN)1200 (Rate/Dose Verify - Provider: Leslee Fong RN) 75 mL/hr, at 75 mL/hr, Intravenous, CONT INUOUS, Starting 06/26/15 at 0545, Until 06/26/15 at 1144, Recovery (Recovery-Hospital Unit) 1525 (Stopped - Provider: Leslee Fong RN) PRN Medication Order 06/26/2015 06/27/2015 06/28/2015 acetaminophen (TYLENOL) tablet 650 mg () 0702 ( Given - Provider: Tracey Tan RN) 650 mg, Oral, EVERY 6 HOURS PRN, Startin g 06/26/15 at 0515, Until 06/26/15 at 0914, Pain, Mild Pain, Maximum dose of acetaminophen is 4000 mg from all sources in 24 hours., Routine acetaminophen (TYLENOL) tablet 650 mg (CANCELED) 1259 (Given - Provider: Leslee Fong RN) 0141 (Given - Provider: Roz Salcido RN) 650 mg, Oral, EVERY 4 HOURS PRN, Startin g 06/26/15 at 1246, Until 06/28/15 at 1725, Pain, Maximum dose of acetaminophen is 4000 mg from all sources in 24 hours., Routine calcium carbonate (TUMS) chewable tablet 500-1,000 mg (CANCELED) 0601 (Given - Provider: Tracey Tan RN) 500-1,000 mg, Oral, EVERY 4 HOURS PRN, S tarting 06/26/15 at 0546, Until 06/28/15 at 1725, Heartburn, Give 500 mg (1 tablet) for mild to moderate heartburn. Give 1,000 mg (2 tablets) for severe heartburn., Routine clopidogrel (PLAVIX) tablet (CANCELED) 0315 (Given - P rovider: Ajay Charles RN) ONCE PRN, Starting 06/26/15 at 0315, Until 06/26/15 at 0430, Intra- Operative (Intra-Procedure), Routine fentaNYL 50 mcg/mL multi-dose injection (CANCELED) 030 1 (Given - Provider: Ajay Charles RN) ONCE PRN, Starting 06/26/15 at 0301, Until 06/26/15 at 0306, Cath (Intra- Procedure), Routine fentaNYL 50 mcg/mL multi-dose injection (CANCELED) 041 8 (Given - Provider: Yoan Vera II, MD) ONCE PRN, Starting 06/26/15 at 0418, Until 06/26/15 at 0430, Intra- Operative (Intra-Procedure), Routine heparin (porcine) injection (CANCELED) 0318 (Given - P rovider: Ajay Charles RN)0328 (Given - Provider: Ajay Charles RN) ONCE PRN, Starting 06/26/15 at 0318, Until 06/26/15 at 0430, Cath (Intra- Procedure), Routine iohexol (OMNIPAQUE) 350 mg/mL solution (CANCELED) 0428 (Given - Provider: Yoan Vera II, MD) ONCE PRN, Starting 06/26/15 at 0428, Until 06/26/15 at 0430, Cath (Intra- Procedure), Routine midazolam (PF) (VERSED) 1 mg/mL multi-dose injection ( CANCELED) 0302 (Given - Provider: Ajay Charles, RN) ONCE PRN, Starting 06/26/15 at 0302, Until 06/26/15 at 0306, Cath (Intra- Procedure), Routine niCARdipine (CARDENE) in sodium chloride 0.9% injectio n (CANCELED) 0340 (Given - Provider: Yoan Vera II, MD)0355 (Given - Provider: Yoan Vera II, MD) ONCE PRN, Starting 06/26/15 at 0355, Until 06/26/15 at 0430, Intra- Operative (Intra-Procedure), Routine nitroGLYcerin (NITROSTAT) SL tablet 0.4 mg 0621 (Given - Provider: Tracey Tan RN) 0.4 mg, Sublingual, EVERY 5 MIN PRN, Sta rting 06/26/15 at 0515, Until 06/28/15 at 1725, Chest pain, May repeat every 5 minutes for a total of three doses. Notify provider if chest pain not relieve d with nitroglycerin. Do not administer nitroglycerin if the patinet has received or taken phosphodiesterase (PDE-5) inhibitors such as sildenafil, tadalafil or vardenafil within the last 24 to 72 hours., Recovery (Recovery- Hospital Unit), Routine nitroGLYcerin 100 mcg/mL intracoronary dilution (CANCE LED) 0346 (Given - Provider: Yoan Vera II, MD) ONCE PRN, Starting 06/26/15 at 0346, Until 06/26/15 at 0430, Cath (Intra- Procedure), Routine perflutren protein-A microspheres (OPTIS ON) 0.22 mg/mL injection 0.2 mL (COMPLETED) 1333 (Given - Provider: Allison Miller) 0.2 mL, Intravenous, ONCE PRN, 1 dose, S tarting 06/26/15 at 1333, Until 06/26/15 at 1333, for enhancement of sub-optimal echo images, Echo Lab (Intra- Procedure), Routine documented in this encounter Care Teams Neck Cutter Relationship Specialty Start Date End Date Yara Gomez MD PCP - General 12/31/12 06/26/[address] [place] [address] documented as of this encounter
--- OUTSIDE RECORDS SUMMARY | 2022-01-06 01:47 | XMS_ITS | Encounter Summary ---
:1955 Author Organization [facility] [place] [address] Care Team Providers Name Role Phone Theo Lopez MD Primary Care Provider Encounter Details Date Type Department Care Team Description 06/26/2015 External Results Medical Intensive Care Krishna Silvestre MD [facility] CARDIOLOGY DE PT. [address] [place] [address] [phone] Social History Tobacco Use Types Packs/Day Years [...] Name Priority Date/Time Associated Diagnosis Comme nts ECG SCAN Routine 06/26/2015 ECG SCAN Routine 06/26/2015 documented in this encounter Results Scan Doc: ECG (06/26/2015) Narrative This result has an attachment that is no t available. Delmar Gregorio MD MEDIA MGR SCAN EXT ORDR/RSLT Scan Doc: ECG (06/26/2015) Narrative This result has an attachment that is no t available. Unruly Silvestre MD MEDIA MGR SCAN EXT ORDR/RSLT documented in this encounter Visit Diagnoses Not on filedocumented in this encounter Care Teams Reading Recovery Teacher Relationship Specialty Start Date End Date Theo Lopez MD PCP - General General Internal Medicine 06/27/15 documented as of this encounter
--- OUTSIDE RECORDS SUMMARY | 2022-01-06 01:47 | XMS_ITS | Encounter Summary ---
:1955 [place] [address] Care Team Providers Name Role Phone Kavon Lopez MD Primary Care Provider Reason for Referral Consultation (Routine) - Closed Specialty Diagnoses / Procedures Referred By Contact Refer red To Contact Diagnoses ST elevation myocardial infarction (STEMI) of inferior wall Frankie Gregorio MD [facility] D R [place] [address] Referral ID Status Reason Start Date Expiration Date Visits V isits Requested Authorized [id number] Closed Evaluate and 06/28/2015 12/25/2015 36 36 Treat Reason for Visit Auth/Cert - Closed Specialty Diagnoses / Procedures Referred By Contact Refer red To Contact Diagnoses STEMI (ST elevation myocardial infarction) STEMI stemi Procedures CARDIAC CATHETERIZATION Referral ID Status Reason Start Date Expiration Date Visits Requ ested Visits Authorized [id number] Closed 1 1 Encounter Details Date Type Department Care Team Description 06/26/2015 - Hospital Encounter Cardiac Special ST gary Gregorio vation 06/28/2015 Care Unit Cinthya Campbell MD [facility] n (STEMI) Hospital CENTER DR of [facility] [place] [id number] [phone] Social History Tobacco Use Types Packs/Day Years [...] M Garibay Patient Age: 59 y.o. Language: Singaporean Race: White Ethnicity: Not nor Admit date: [...] please contact your inpatient physician through the [facility] County Auditor . Issues after hours and on weekends [...] called an ambulance and was taken to [facility], where an ECG showed inferior ST elevations with Q waves in lead III. His pain improved but did not totally resolve with NTG. No lytics were given, but he did get aspirin 324mg, Plavix 300mg, and heparin. He was transferred here via [facility]. In the farm laborer here, he received 3 stents (2 LILLIAN, [...] arrhythmias or other significant complications of his [place]. Jose M was treated with aspirin 81mg [...] other concerning symptoms. Follow up Appointments: KAVON LOPEZ MD [phone] Future Appointments and Orders Future Orders Complete By Expires Referral to Cardiac Rehab [[id number] Custom] As directed Process Instructions: If no progress note charted, please enter Clinical details in comments. Scheduling Instructions: Questions: My question or request is: STEMI. Cardiac rehab at [facility] Cardiology Follow Up Appointment: At [facility] with Dr. Alvarez at 9:30AM on July 22 Primary Care Follow Up Appointment: June 30 at 2:00 PM Your Inpatient Doctors: Attending: Dr. Frankie Medeiros MD Fellow: Dr. Neto Robledo MD Resident: Dr. Bettie Tierney MD Snaker: Dr. Jeffery De La Cruz MD General Instructions None Future Appointments and Orders Future Orders Complete By Expires Referral to Cardiac Rehab [[id number] Custom] As directed Process Instructions: If no progress note charted, please enter Clinical details in comments. Scheduling Instructions: Questions: My question or request is: STEMI. Cardiac rehab at [facility] Discharge References/Attachments None documented in this encounter Discharge Instructions Patient InstructionsEnmanueldeidra Jeffery M - 06/28/2015 11:26 AM EDT Why [...] other concerning symptoms. Follow up Appointments: KAVON LOPEZ MD [phone] Future Appointments and Orders Future Orders Complete By Expires Referral to Cardiac Rehab [[id number] Custom] As directed Process Instructions: If no progress note charted, please enter Clinical details in comments. Scheduling Instructions: Questions: My question or request is: STEMI. Cardiac rehab at [facility] Cardiology Follow Up Appointment: At [facility] with Dr. Alvarez at 9:30AM on July 22 Primary Care Follow Up Appointment: June 30 at 2:00 PM Your Inpatient Doctors: Attending: Dr. Frankie Medeiros MD Fellow: Dr. Neto Robledo MD Resident: Dr. Bettie Tierney MD Snaker: Dr. Jeffery De La Cruz MD documented [...] EDT Office of Care Management (OCM) / Lap Grinder(CM)/ Initial Assessment Discussed patient with Provider Team and in multidisciplinary discharge-planning rounds. Reviewed record and interviewed patient. Introduced/reviewed CM role and services accepted. REASON for HOSPITALIZATION: 59 y.o. male with HTN who is admitted to [facility] for management of an inferior STEMI PMH [...] DME: none Home Health Agency: none Other: SET UP INSPECTOR REFERRAL: not needed at this time PRIMARY CARE PHYSICIAN: KAVON LOPEZ MD [address] / [facility] [address] POTENTIAL DISCHARGE NEEDS: none at this time [...] male with HTN who is admitted to [facility] for management of an inferior STEMI. Active [...] Resp: [12-25] SpO2 SpO2: [97 %-99 %] IO 06/25 0701 - 06/26 0700 In: 1910.5 [...] Nerves: EOMI Labs: CBC: Recent Labs 06/27/15 03306/26/15 0550 WBC 10.2* 10.4* HGB 15.3 14.3 PLATELET 207 211 BMP: Recent Labs 06/27/15 03306/26/15 0530 NA 140 141 K 3.9 3.6 CL 105 107 CO2 21* 19* BUN 11 9* CREATININE 1.00 0.85 GLUCOSE -- 108 Calcium, Magnesium, Phosphate: Recent Labs 06/27/15 03306/26/15 0530 CALCIUM 8.5 7.1* MAGNESIUM 0.85 0.64* [...] male with HTN who is admitted to [facility] for management of an inferiorSTEMI with 100% [...] - Nutrition: Daily Healthy Menu Choices/Cardiac diet ([facility]-Diet) - Code Status: Full Code - Disposition: Possible discharge this afternoon. Patient will need outpatient cardiology follow up JEFFERY DE LA CRUZ MD 06/27/2015 Internal Medicine, PGY 1 Cardiology S1 Pager: [phone] Cardiology Staff Discharge Day Notation: I interviewed [...] here was markedly elevated).?? Went directly to farm laborer and had PCI to RCA (coronary angiogram [...] DC summary document. FRANKIE GREGORIO MD Staff Merchandising Intern Frankie Gregorio MD - 06/27/2015 6:21 AM EDT Inpatient Cardiology Progress Note Patient: Jose M Chen [facility] Day 1 day Active Problems: 59yo M [...] 1472* TROPONINT 2.21* 2.80* 4.52* Recent Labs 06/27/15335 HA1C 5.7* Lipid Panel Lab Results Component [...] BETTIE TIERNEY MD, PGY-2 Cardiology S1, Pager [phone] 06/27/2015 CARDIOLOGY STAFF ADDENDUM I have personally [...] here was markedly elevated).?? Went directly to farm laborer and had PCI to RCA (coronary angiogram [...] Ticagrelor prior to discharge. Frankie Gregorio MD, [facility] Staff Merchandising Intern, Pager [phone] Genie Terry RN - 06/26/2015 11:51 PM [...] called an ambulance and was taken to [facility], where an ECG showed inferior ST elevations with Q waves in lead III. His pain improved but did not totally resolve with NTG. No lytics were given, but he did get aspirin 324mg, Plavix 300mg, and heparin. Hewas transferred here via [facility]. In the farm laborer here, he received 3 stents (2 LILLIAN, [...] None Allergies: NKDA Family History: Father had [place] in his 70's. Paternal grandfather had [place] in his 50's. Social History and Habits: [...] obvious focal deficit SKIN: no rashes Laboratory: [facility] labs: WBC 15.1, hgb 15.7, plts 238 [...] FULL TOÑO SALINAS MD 06/26/2015 Team pager: [phone] CARDIOLOGY STAFF ADDENDUM I have personally interviewed [...] troponin herewas markedly elevated). Went directly to farm laborer and had PCI to RCA (coronary angiogram films reviewed, complex case with large thrombus burden). The patient is chest pain free. Will check echo and trend cardiac biomarkers until peaked. Will begin to initiate guideline directed medical therapy. Will check on insurance coverage issues Sunday -- will consider switching plavix to ticagrelor if covered. Frankie Gregorio MD, [facility] Staff Merchandising Intern, Pager [phone] Zach Cordova - 06/26/2015 3:55 AM EDT [facility] Brief Admission Note Mr. Garibay is a [...] and depression in V2 indicative of inferoposterior [place]. There were inferior Qs as well as a relatively tall R wave in V2. No RV involvement per right-sided leads. Initial TnI elevated at 1.79. Due to ECG and lab evidence of late presentation, hemodynamic stability with markedly improved chest pain, and availability of rapid transport by [facility], decision to defer lytics made. The patient received ASA 324 mg, UFH bolus and drip, and 300 mg Sandie vix prior to transport. Another 300 mg Plavix was given on arrival to the farm laborer. On arrival, the patient had 1/10 chest [...] mild residual chest pain. Plan: -Admit to [facility] -Telemetry monitoring -Serial cardiac biomarkers -Continue aspirin [...] details and plan. Zach Cordova MD Pager [phone] Development Rep documented in this encounter Miscellaneous Notes Plan [...] to the outpatient cardiac rehabilitation program at [facility] was discussed. Patient agrees to a referral [...] (Interventions Implemented as Appropriate) 06/27/15 0432 06/27/15 2041 Plan of Care Review Plan of Care [...] Handling Outcome: Ongoing (Interventions Implemented as Appropriate) 06/27/15204006/27/15 2100 06/28/15 0346 Musculoskeletal Interventions Activity/Level of [...] Control Outcome: Ongoing (Interventions Implemented as Appropriate) 06/27/152040 Coping/Psychosocial Response Interventions Counseling calming techniques promoted;emotional [...] OUTCOME EVALUATION: Plan of Care - Genie Henyr RN - 06/27/2015 4:26 PM EDT Problem: [...] Review Outcome: Ongoing (Interventions Implemented as Appropriate) 06/27/1543106/27/15 0850 Plan of Care Review Plan of Care Outcome Status ongoing (interventions implemented as appropriate) -- Progress improving -- Coping/Psychosocial Response Interventions Plan of Care Reviewed with -- patient Goal: Fall Prevention-Safe Patient Handling Outcome: Ongoing (Interventions Implemented as Appropriate) 06/27/1506/27/15 0850 Tavarez Fall Risk History of Falling -- 0 [...] Ongoing (Interventions Implemented as Appropriate) 06/27/15 0432 Plan of Care Review Plan of Care [...] OUTCOME EVALUATION: Goal: Fall Prevention-Safe Patient Handling 06/26/15199906/27/15 0000 06/27/15 0338 Tavarez Fall Risk History of Falling 0 [...] Outcome: Ongoing (Interventions Implemented as Appropriate) 06/26/15199906/27/15 0338 Coping/Psychosocial Response Interventions Counseling calming techniques promoted;emotional support provided -- Safety Interventions Isolation Precautions -- standard precautions maintained Infection Prevention bronchial hygiene promoted;blood glucose management;environmental surveillance;hydration promoted;promote handwashing;nutrition promoted;rest/sleep promoted -- Plan of Care - Leslee Fong RN - 06/26/2015 5:19 PM EDT Problem: Cardiac Catheterization with/without PCI (Adult) Goal: Signs and symptoms of listed potential problems will be absent or manageable (reference (Cardiac Catheterization with/without PCI (Adult)) CPG) Outcome: Ongoing (Interventions Implemented as Appropriate) 06/26/15 1713 Cardiac Catheterization with/without PCI Problems Assessed (Cardiac Catheterization with/without PCI) all Problems Present (Cardiac Catheterization with/without PCI) none Problem: General Plan of Care Goal: Plan of Care Review Outcome: Ongoing (Interventions Implemented as Appropriate) 06/26/15 1713 Plan of Care Review Plan of Care [...] PLAN MOVING FORWARD: Awaiting transfer orders to [facility]. Pt education and rehab. INDIVIDUALIZED FALL PREVENTION: Assistance: Up in room w/stand-by assist Supervision: RN/KELLY Surveillance: RN [facility] level of care. CPG GOAL OUTCOME EVALUATION: Goal: Individualization and Mutuality Outcome: Ongoing (Interventions Implemented as Appropriate) 06/26/15 1713 Individualization Patient Specific Goals transfer to regular room Goal: Fall Prevention-Safe Patient Handling Outcome: Ongoing (Interventions Implemented as Appropriate) Goal: Infection Control Outcome: Ongoing (Interventions Implemented as Appropriate) Goal: Discharge Needs Assessment Outcome: Ongoing (Interventions Implemented as Appropriate) 06/26/15 171 Discharge Needs Assessment Concerns to be Addressed no discharge needs identified Readmission Within the Last 30 Days no previous admission in last 30 days Living Environment Transportation Available car;family or friend will provide Plan of Care - Tracey Tna RN - 06/26/2015 6:17 AM EDT Problem: [...] IMPLANTABLE DEVICES SCAN 06/29/2015 12:00 AM EDT AX SURVEY WORKER SCAN 06/29/2015 12:00 AM EDT AX SURVEY WORKER SCAN 06/29/2015 12:00 AM EDT CARDIAC CATH [...] Routine 06/27/2015 3:36 Results f or this ([facility]) AM EDT procedure are i n the [...] Routine 06/26/2015 8:07 Results f or this ([facility]) PM EDT procedure are i n the results section. ECHOCARDIOGRAM COMPLETE Routine 06/26/2015 1:33 ST elevation R esults for this W CONTRAST PM EDT myocardial procedure are i n infarction (STEMI) the resul ts of inferior wall section. CARDIAC ENZYMES Routine 06/26/2015 12:20 Results for this ([facility]) PM EDT procedure are i n the [...] STAT 06/26/2015 5:30 Results f or this ([facility]) AM EDT procedure are i n the [...] documented in this encounter Results SCAN DOC: AX SURVEY WORKER (06/29/2015 12:00 AM EDT) Narrative This result has an attachment that is no t available. Scanning Provider MEDIA MGR SCAN EXT ORDR/RSLT SCAN DOC: AX SURVEY WORKER (06/29/2015 12:00 AM EDT) Narrative This result [...] (ABNORMAL) Differential, Automated (06/28/2015 4:11 AM EDT) [facility] Method Time Signature Neutrophils % 54.2 % [facility] Neutr Abs (ANC) 5.90 1.50 - [facility] 6.30 [facility] x10(3)/[facility] LABORATORY Lymphocytes % 35.6 % [facility] Lymphocytes Abs 3.9 (H) 1.0 - 3.6 [facility] x10(3)/[facility] LABORATORY Monocytes % 7.4 % [facility] Monocyte Abs 0.8 0.2 - 1.0 [facility] x10(3)/[facility] LABORATORY Eosinophils % 2.5 % [facility] Eosinophils Abs 0.3 0.0 - 0.5 [facility] x10(3)/[facility] LABORATORY Basophils % 0.2 % [facility] Basophils Abs 0.0 0.0 - 0.2 [facility] x10(3)/[facility] LABORATORY Immature Gran % 0.10 % [facility] Comment: Immature granulocytes(IG's)percentage an d absolute count will include metamyelocytes, myelocytes, and promyelo cytes. Blood smears from CBCs yielding IG's will be scanned manually for concor dance. If this scan disagrees with the automated IG or if promyelocytes are not ed, a manual differential will be performed. Ary Gran Abs 0.01 0.00 - 0.05 x10(3)/[facility] Specimen Anatomical Collection Method Collection Time Receive d Time (Source) Location / / Volume Laterality Blood specimen 06/28/2015 4:11 AM 016 4:25 (specimen) EDT AM EDT Resulting Agency Comment Spec In Lab Frankie Gregorio MD HEMATOLOGY ORDERABLES Performing Organization Address City/State/[place] [address] (ABNORMAL) Hemogram (06/28/2015 4:11 AM EDT) P athologist Signature WBC 10.9 (H) 4.0 - 10.0 [facility] x10(3)/[facility] LABORATORY RBC 5.33 4.63 - [facility] 6.08 [facility] x10(6)/[facility] LABORATORY Hemoglobin 15.2 13.7 - [facility] 17.5 gm/dL [facility] Hematocrit 46.5 40.0 - [facility] 51.0 % [facility] MCV 87.2 79.0 [facility].0 [facility] LABORATORY MCH 28.5 25.6 - CINTHYA SAMAYOA 32.2 pg [facility] MCHC 32.7 32.0 - [facility] 36.5 gm/dL [facility] Platelets 198 145 - 370 [facility] x10(3)/[facility] LABORATORY RDWSD 42.6 35.0 - CINTHYA DANITA 46.0 [facility] LABORATORY RDWCV 13.5 10.9 - CINTHYA DANITA 14.4 % [facility] LABORATORY MPV 11.7 9.0 - 12.0 [facility] LABORATORY Specimen Anatomical Collection Method Collection Time Receive d Time (Source) Location / / Volume Laterality Blood specimen 06/28/2015 4:11 AM 016 4:25 (specimen) EDT AM EDT Resulting Agency Comment Spec In Lab Frankie Gregorio MD HEMATOLOGY ORDERABLES Performing Organization Address City/State/[place] [address] Basic Metabolic Panel (non-fasting) (06/28/2015 4:11 AM EDT) athologist Signature Glucose Lvl 88 65 - 199 [facility] mg/dL [facility] Comment: Diabetes: >=200 mg/dL plus symp toms BUN 13 10 - 20 mg/dL [facility] Creatinine 0.99 0.80 - 1.50 mg/dL [facility] Comment: Please note that the pediatric reference intervals supplied above were not validated at [facility]. Results from pediatri c patients should be interpreted in conjunction to the patient's age, height and muscle mass. Sodium 140 135 - 145 mmol/L [facility] Potassium 4.2 3.5 - 5.0 mmol/L [facility] Comment: Please note: ??Patients with WBC >100,00 0 may have falsely elevated Potassium levels. ??For accurate Potassium quantif ication in these patients send serum separator tube (gold top) for subsequent determinations. ??Contact the Clinical Chemistry Laboratory if there are any qu estions. Chloride 104 98 - 107 mmol/L [facility] CO2 22 22 - 31 mmol/L [facility] Anion Gap 14 5 - 15 mmol/L [facility] Calcium 8.6 8.5 - 10.5 mg/dL [facility] Estimated GFR >60 >=60 [facility] Comment: This estimated GFR (eGFR) value [...] the following links into your internet browser. [email or web address]/DHnkdep [email or web address]/DHMCnkf Specimen Anatomical Collection Method Collection Time Receive d Time (Source) Location / / Volume Laterality Blood specimen 06/28/2015 4:11 AM 016 4:25 (specimen) EDT AM EDT Resulting Agency Comment Spec In Lab Frankie Gregorio MD CHEMISTRY ORDERABLES Performing Organization Address City/State/[place] [address] EKG 12 Lead (06/27/2015 7:38 AM EDT) Component Value Ref Range Test Analysis Performed Pathologis t Method Time At Signature Ventricular rate 67 BPM MUSE SYSTEM Atrial Rate 67 BPM MUSE SYSTEM P-R Interval 144 ms MUSE SYSTEM QRS Duration 76 ms MUSE SYSTEM Q-T Interval 424 ms MUSE SYSTEM QTC Calculated 448 ms MUSE SYSTEM (Bezet) Calculated P Causey 26 degrees MUSE SYSTEM Calculated R Causey 3 degrees MUSE SYSTEM Calculated T Causey -25 degrees MUSE SYSTEM INTERPRETATION Normal sinus rhythm MUSE SYSTEM Inferior infarct , age undetermined Abnormal ECG No previous ECGs available Confirmed by MD Linden, Dawit Renteria ([id number]) on 06/27/2015 9:51:33 AM Specimen Anatomical Collection Method Collection Time Receive d Time (Source) Location / / Volume Laterality 06/27/2015 7:38 AM 6 9:51 EDT AM EDT Frankie Gregorio MD ECG ORDERABLES Performing Organization Address City/State/ZIP Code Phon e Number MUSE SYSTEM (ABNORMAL) BMP w/fasting Glucose (06/27/2015 3:36 AM EDT) athologist Signature Glucose 100 (H) 65 - 99 [facility] Fasting mg/dL [facility] Comment: ?Fasting* Glucose Interpretive C [...] of Diabetes Mellitus, Position Statement from the [place] [employer] Association. ??Diabete s Care, Volume 33, Supplement 1, Apr 2009 BUN 11 10 - 20 mg/dL [facility] Creatinine 1.00 0.80 - 1.50 mg/dL [facility] Comment: Please note that the pediatric reference intervals supplied above were not validated at [facility]. Results from pediatri c patients should be interpreted in conjunction to the patient's age, height and muscle mass. Sodium 140 135 - 145 mmol/L [facility] Potassium 3.9 3.5 - 5.0 mmol/L [facility] Comment: Please note: ??Patients with WBC >100,00 0 may have falsely elevated Potassium levels. ??For accurate Potassium quantif ication in these patients send serum separator tube (gold top) for subsequent determinations. ??Contact the Clinical Chemistry Laboratory if there are any qu estions. Chloride 105 98 - 107 mmol/L [facility] CO2 21 (L) 22 - 31 mmol/L [facility] Anion Gap 14 5 - 15 mmol/L [facility] Calcium 8.5 8.5 - 10.5 mg/dL [facility] Comment: result rechecked-[id number] Estimated GFR >60 >=60 [facility] Comment: This estimated GFR (eGFR) value [...] the following links into your internet browser. [email or web address]://iMapData/DHnkdep [email or web address]/DHMCnkf Specimen Anatomical Collection Method Collection Time Receive d Time (Source) Location / / Volume Laterality Blood specimen 06/27/2015 3:36 AM 016 3:44 (specimen) EDT AM EDT Resulting Agency Comment Spec In Lab Frankie Gregorio MD CHEMISTRY ORDERABLES Performing Organization Address City/State/[place] [address] Differential, Automated (06/27/2015 3:36 AM EDT) P athologist Signature Neutrophils % 60.3 % [facility] Neutr Abs (ANC) 6.12 1.50 - [facility] 6.30 [facility] x10(3)/[facility] LABORATORY Lymphocytes % 30.1 % [facility] Lymphocytes Abs 3.1 1.0 - 3.6 [facility] x10(3)/[facility] LABORATORY Monocytes % 8.2 % [facility] Monocyte Abs 0.8 0.2 - 1.0 [facility] x10(3)/[facility] LABORATORY Eosinophils % 1.1 % [facility] Eosinophils Abs 0.1 0.0 - 0.5 [facility] x10(3)/[facility] LABORATORY Basophils % 0.2 % [facility] Basophils Abs 0.0 0.0 - 0.2 [facility] x10(3)/[facility] LABORATORY Immature Gran % 0.10 % [facility] Comment: Immature granulocytes(IG's)percentage an d absolute count will include metamyelocytes, myelocytes, and promyelo cytes. Blood smears from CBCs yielding IG's will be scanned manually for concor dance. If this scan disagrees with the automated IG or if promyelocytes are not ed, a manual differential will be performed. Ary Gran Abs 0.01 0.00 - 0.05 x10(3)/[facility] Specimen Anatomical Collection Method Collection Time Receive d Time (Source) Location / / Volume Laterality Blood specimen 06/27/2015 3:36 AM 016 3:44 (specimen) EDT AM EDT Resulting Agency Comment Spec In Lab Frankie Gregorio MD HEMATOLOGY ORDERABLES Performing Organization Address City/State/[place] [address] (ABNORMAL) Hemogram (06/27/2015 3:36 AM EDT) P athologist Signature WBC 10.2 (H) 4.0 - 10.0 [facility] x10(3)/[facility] [place] LABOR[facility]ORY RBC 5.32 4.63 - [facility] 6.08 [facility] x10(6)/[facility] Hemoglobin 15.3 13.7 - [facility] 17.5 gm/dL [facility] Hematocrit 45.4 40.0 - [facility] 51.0 % [facility] LABORATORY MCV 85.3 79.0 - [facility] 92.0 [facility] LABORATORY MCH 28.8 25.6 - CINTHYA DANITA 32.2 pg [facility] LABORATORY MCHC 33.7 32.0 - [facility] 36.5 gm/dL [facility] LABOR[facility] Platelets 207 145 - 370 [facility] x10(3)/[facility] LABORATORY RDWSD 43.0 35.0 - [facility] 46.0 [facility] RDWCV 13.8 10.9 - [facility] 14.4 % [facility] LABORATORY MPV 11.7 9.0 - 12.0 [facility] LABORATORY Specimen Anatomical Collection Method Collection Time Receive d Time (Source) Location / / Volume Laterality Blood specimen 06/27/2015 3:36 AM 016 3:44 (specimen) EDT AM EDT Resulting Agency Comment Spec In Lab Frankie Gregorio MD HEMATOLOGY ORDERABLES Performing Organization Address City/[facility]/[place] [address] (ABNORMAL) Cardiac Enzymes (06/27/2015 3:36 AM EDT) P athologist Signature Troponin-T 2.21 (H) <=0.03 [facility] ng/mL [facility] LABORATORY Comment: result rechecked-llu 0.03 ng/mL: [...] consensus document of the Joint Society of Cardiology/[place] College o f Cardiology Committee for the redefinition of myocardial infarction. ? ?Journal of the [place] College of Cardiology 2000; 36: 959-969] CK, Total 708 (H) 0 - 200 unit/L [facility] LABORATORY Specimen Anatomical Collection Method Collection Time Receive d Time (Source) Location / / Volume Laterality Blood specimen 06/27/2015 3:36 AM 016 3:44 (specimen) EDT AM EDT Resulting Agency Comment Spec In Lab Frankie Gregorio MD CHEMISTRY ORDERABLES Performing Organization Address City/[facility]/[place] [address] Magnesium (06/27/2015 3:36 AM EDT) P athologist Signature Magnesium 0.85 0.69 - 1.[address] mmol/L [facility] LABORATORY Specimen Anatomical Collection Method Collection Time Receive d Time (Source) Location / / Volume Laterality Blood specimen 06/27/2015 3:36 AM 016 3:44 (specimen) EDT AM EDT Resulting Agency Comment Spec In Lab Frankie Gregorio MD CHEMISTRY ORDERABLES Performing Organization Address City/[facility]/ZIP [facility] Phon e Number [address] Triglyceride (06/27/2015 3:36 AM EDT) athologist Signature Triglycerides 111 <=149 [facility] mg/dL [facility] LABORATORY Comment: Reference Range: Normal triglycerides: ??<150 mg/dL Borderline high: ??150-199 mg/dL High: ??200-499 mg/dL Very high: ??>iq=657 mg/dL GIA 2000; 285(19):0405-8355 Specimen Anatomical Collection Method Collection Time Receive d Time (Source) Location / / Volume Laterality Blood specimen 06/27/2015 3:36 AM 016 3:44 (specimen) EDT AM EDT Resulting Agency Comment Spec In Lab Frankie Gregorio MD CHEMISTRY ORDERABLES Performing Organization Address City/[facility] [place] [address] (ABNORMAL) HDL/Cholesterol Profile (06/27/2015 3:36 AM EDT) athologist Signature Chol, Total 154 <=199 mg/dL [facility] LABORATORY Comment: Recommendations of the NCEP Adult Treatm ent Panel for the following risk cutoff thresholds for the [place] Citizen [place] populatio n: Desirable: <200 mg/dL Borderline High: 200-239 mg/dL High: > or = 240 mg/dL HDL 29 (L) >=40 mg/dL [facility] LABORATORY Comment: Reference range: ??Low HDL: ?? < 40 mg/dL ??Normal: ?40-60 mg/dL ??Desirable: > 60 mg/dL GIA 2000; 285(19):1167-3814 Chol/HDL Ratio 5.3 ratio [facility] LABORATORY Comment: A Cholesterol to HDL ratio below 4:1 is desirable. ??Studies suggest that increased CAD risk occurs at ratios abov e 5 for females and above 6 for men. ? [place] Heart Association ??(htt p://www.americanheart.org) ? Janet Int Med, 1994; 121:641 ? AM J Med, 1998; 105(1A):48S Specimen Anatomical Collection Method Collection Time Receive d Time (Source) Location / / Volume Laterality Blood specimen 06/27/2015 3:36 AM 016 3:44 (specimen) EDT AM EDT Resulting Agency Comment Spec In Lab Frankie Gregorio MD CHEMISTRY ORDERABLES Performing Organization Address City/[facility]/ZIP Code Phon e Number [place] [phone]OS[address] LAB[address]ORY [address] (ABNORMAL) LDL Cholesterol, Direct (06/27/2015 3:36 AM EDT) athologist Signature LDL Chol 110 (H) <=99 mg/dL [facility] LABORATORY Comment: The National Cholesterol Education Progr am (NCEP) has set the following guidelines for LDL Cholesterol: Reference range: ?? Optimal: ?<100 mg/dL ?? Near Optimal/Above Optimal: ?? 100-1 29 mg/dL ?? Borderline high: ?130-159 mg/dL ?? High: ? 160-189 mg/dL ?? Very high: ?>vt=668 mg/dL GIA 2001: 285(19):6978-4417 Specimen Anatomical Collection Method Collection Time Receive d Time (Source) Location / / Volume Laterality Blood specimen 06/27/2015 3:36 AM 016 3:44 (specimen) EDT AM EDT Resulting Agency Comment Spec In Lab Frankie Gregorio MD CHEMISTRY ORDERABLES Performing Organization Address City/State/[place] [address] (ABNORMAL) Hemoglobin A1c (06/27/2015 3:36 AM EDT) Analysis Performed At [facility] Time Signature Hemoglobin A1C 5.7 (H) 4.3 - 5.6 [facility] LABORATORY Comment: Reference Range: 4.3 [...] Mellitus, Diabetes Care 2013; 36: Suppl. 1, S67-25 Est Avg Gluc 117 mg/dL [facility] LABORATORY Comment: eAG equivalents for HbA1c percentages: HbA1c(%) ?eAG(mg/dL) 6.0 ?126 6.5 ?140 7.0 ?154 7.5 ?169 8.0 ?183 8.5 ?197 9.0 ?212 9.5 ?226 10.0 ? 240 Limitations: The eAG calculation has not been validated on women, individuals below 18 years old and above 70 years old, and individuals with hemoglobinopathies. Additional resources are available on ADA website: http://iMapData/DHMCadacalc Panfilo VELÁZQUEZ, Laura J, Delon R, et al. ??Tr anslating the A1C assay into estimated average glucose values. ??Diabetes Care 2008:31(8):8326-3630. Specimen Anatomical Collection Method Collection Time Receive d Time (Source) Location / / Volume Laterality Blood specimen 06/27/2015 3:36 AM 016 3:44 (specimen) EDT AM EDT Resulting Agency Comment Spec In Lab Frankie Gregorio MD CHEMISTRY ORDERABLES Performing Organization Address City/[facility]/[place] [address] (ABNORMAL) Cardiac Enzymes (06/26/2015 8:07 PM EDT) athologist Signature Troponin-T 2.80 (H) <=0.03 [facility] ng/mL [facility] LABORATORY Comment: result rechecked-FC 0.03 ng/mL: [...] consensus document of the Joint Society of Cardiology/[place]izen [place] College o f Cardiology Committee for the redefinition of myocardial infarction. ? ?Journal of the [place] College of Cardiology 2000; 36: 959-969] CK, Total 1,018 (H) 0 - 200 unit/L [facility] LABORATORY Specimen Anatomical Collection Method Collection Time Receive d Time (Source) Location / / Volume Laterality Blood specimen 06/26/2015 8:07 PM 016 8:13 (specimen) EDT PM EDT Resulting Agency Comment Spec In Lab Frankie Gregorio MD CHEMISTRY ORDERABLES Performing Organization Address City/[facility]/[place] [address] ECHOCARDIOGRAM COMPLETE W CONTRAST (06/26/2015 1:33 PM EDT) P athologist Signature EF 55 HEARTLAB SYSTEM Anatomical Region Laterality Modality Other Specimen (Source) Anatomical Location Collection Method / Collectio n Time Received Time / Laterality Volume 06/26/2015 Narrative 06/26/2015 5:32 PM EDT Procedure: ?Transthoracic Echocardiogram Patient: ?MAIN Chen ?? (Age): 1955(59y) Med Rec#: ? [id number] ?Sex: ?M ? Site Loc: ? [facility] ?Ht / Wt: ??193(cm)/107(kg) Pt. Loc: ?CCU ? BSA: ?2.38 Study Date: ?? 06/26/2015 ?Pt. Type: Inpatient Tape: ? Referring: SAMI CARDOZO Referring: Frankie Gregorio ([id number] ) Reading: Frankie Gregorio ([id number]) Geophysical Data Technician: Allison Miller BA, [facility] Diagnosis: *ICD-10-PCS ST elevation (STEMI) myocar dial infarction involving other coronary artery of inferior wall (I21.19 ) CPT Codes: *Echo Full (66484) *Spectral Doppler (00826) *Color Doppler (90468) *Optison (92369LV) BP: ? 147/91 SUMMARY: 1. Technically limited [...] E-wave Vmax ?0.7 ?m/sec ? MV deceleration [id number] ?msec ? MV A-wave Vmax ?0.7 ?m/sec [...] ? Mid-Inferior ?Hypokinetic ? Mid-Inferoseptal ?Hypokinetic ? Streetman-Septal ? Normal ? Streetman-Anterior ? Normal ? Streetman-Lateral ?Normal ? Streetman-Inferior ? Normal ? Streetman-Tip ?Normal ? This report has been electronically sign ed by: _ Frankie Gregorio MD ? 06/26/2015 17:32:19 [facility] Procedure Note Frankie Gregorio MD - 06/26/2015For matting of this note might be different from the original. Procedure: Transthoracic Echocardiogram Patient: MAIN Chen (Age): 0 1955(59y) Med Rec#: [id number] Sex: M Site Loc: [facility] Ht / Wt: 193(cm)/107(kg) Pt. Loc: CCU BSA: 2.38 Study Date: 06/26/2015 Pt. Type: Inpatie nt Tape: Referring: SAMI CARDOZO Referring: Frankie Gregorio ([id number] ) Reading: Frankie Gregorio ([id number]) Geophysical Data Technician: Allison Miller BA, [facility] Diagnosis: *ICD-10-PCS ST elevation (STEMI) myocar dial infarction involving other coronary artery of inferior wall (I21.19 ) CPT Codes: *Echo Full (61830) *Spectral Doppler (01289) *Color Doppler (03636) *Optison (21157FB) BP: 147/91 SUMMARY: 1. Technically limited study [...] MV E-wave Vmax 0.7 m/sec MV deceleration [id number] msec MV A-wave Vmax 0.7 m/sec MV E:A ratio 1 ratio LV E:e' septal ratio10 ratio Tricuspid Valve Value Units (Range) TAPSE 2.2 cm Wall Motion: Segment Name Rest Base-Anteroseptal Normal Base-Anterior Normal Base-Anterolateral Normal Base-Posterolateral Normal Base-Inferior Akinetic Base-Inferoseptal Akinetic Mid-Anteroseptal Normal Mid-Anterior Normal Mid-Anterolateral Normal Mid-Posterolateral Normal Mid-Inferior Hypokinetic Mid-Inferoseptal Hypokinetic Streetman-Septal Normal Streetman-Anterior Normal Streetman-Lateral Normal Streetman-Inferior Normal Streetman-Tip Normal This report has been electronically sign ed by: _ Frankie Gregorio MD 06/26/2015 17:32: 19 Images reviewed and interpretation verif ied [facility] Cardiac Ultrasound Laboratory Frankie Gregorio MD ECHO ORDERABLES (ABNORMAL) Cardiac Enzymes (06/26/2015 12:20 PM EDT) P athologist Signature Troponin-T 4.52 (H) <=0.03 [facility] ng/mL [facility] LABORATORY Comment: result rechecked- ab 0.03 [...] consensus document of the Joint Society of Cardiology/[place] College o f Cardiology Committee for the redefinition of myocardial infarction. ? ?Journal of the [place] College of Cardiology 2000; 36: 959-969] CK, Total 1,472 (H) 0 - 200 unit/L [facility] LABORATORY Specimen Anatomical Collection Method Collection Time Receive d Time (Source) Location / / Volume Laterality Blood specimen 06/26/2015 12:20 6 (specimen) PM EDT 12:30 PM EDT Resulting Agency Comment Spec In Lab Frankie Gregorio MD CHEMISTRY ORDERABLES Performing Organization Address City/State/ZIP Code Phon e Number [place] [id number]OSPITAL LABORATORY Drive XR Chest Pa or [...] (ABNORMAL) Differential, Automated (06/26/2015 5:50 AM EDT) [facility] Method Time Signature Neutrophils % 83.4 % [facility] LABORATORY Neutr Abs (ANC) 8.72 (H) 1.50 - [facility] 6.30 [facility] x10(3)/[facility] LABORATORY Lymphocytes % 13.4 % [facility] LABORATORY Lymphocytes Abs 1.4 1.0 - 3.6 [facility] x10(3)/[facility] LABORATORY Monocytes % 2.8 % [facility] LABORATORY Monocyte Abs 0.3 0.2 - 1.0 [facility] x10(3)/[facility] LABORATORY Eosinophils % 0.1 % [facility] LABORATORY Eosinophils Abs 0.0 0.0 - 0.5 [facility] x10(3)/[facility] LABORATORY Basophils % 0.1 % [facility] LABORATORY Basophils Abs 0.0 0.0 - 0.2 [facility] x10(3)/[facility] LABORATORY Immature Gran % 0.20 % [facility] LABORATORY Comment: Immature granulocytes(IG's)percentage an d absolute count will include metamyelocytes, myelocytes, and promyelo cytes. Blood smears from CBCs yielding IG's will be scanned manually for concor dance. If this scan disagrees with the automated IG or if promyelocytes are not ed, a manual differential will be performed. Ary Gran Abs 0.02 0.00 - 0.05 x10(3)/[facility] LABORATORY Specimen Anatomical Collection Method Collection Time Receive d Time (Source) Location / / Volume Laterality Blood specimen 06/26/2015 5:50 AM 016 5:54 (specimen) EDT AM EDT Resulting Agency Comment Spec In Lab Frankie Gregorio MD HEMATOLOGY ORDERABLES Performing Organization Address City/State/[facility] [place] [address] (ABNORMAL) Hemogram (06/26/2015 5:50 AM EDT) P athologist Signature WBC 10.4 (H) 4.0 - 10.0 [facility] x10(3)/[facility] LABORATORY RBC 5.01 4.63 - [facility] 6.08 [facility] x10(6)/[facility] LABORATORY Hemoglobin 14.3 13.7 [facility] 17.5 gm/dL [facility] LABORATORY Hematocrit 42.8 40.0 - [facility] 51.0 % [facility] LABORATORY MCV 85.4 79.0 - [facility] 92.0 [facility] LABORATORY MCH 28.5 25.6 - [facility] 32.2 pg [facility] LABORATORY MCHC 33.4 32.0 - [facility] 36.5 gm/dL [facility] LABORATORY Platelets 211 145 - [address] x10(3)/[facility] LABORATORY RDWSD 40.6 35.0 - [facility] 46.0 [facility] LABORATORY RDWCV 13.1 10.9 - [facility] 14.4 % [facility] LABORATORY MPV 11.3 9.0 - 12.0 [facility] LABORATORY Specimen Anatomical Collection Method Collection Time Receive d Time (Source) Location / / Volume Laterality Blood specimen 06/26/2015 5:50 AM 016 5:54 (specimen) EDT AM EDT Resulting Agency Comment Spec In Lab Frankie Gregorio MD HEMATOLOGY ORDERABLES Performing Organization Address City/State/[place] [address] (ABNORMAL) Magnesium (06/26/2015 5:30 AM EDT) athologist Signature Magnesium 0.64 (L) 0.69 - 1.07 [facility] mmol/L [facility] LABORATORY Specimen Anatomical Collection Method Collection Time Receive d Time (Source) Location / / Volume Laterality Blood specimen Venous Draw / 06/26/2015 5:30 AM 2015 5:37 (specimen) Unknown EDT AM EDT Resulting Agency Comment Spec In Lab Yoan Vera II, MD CHEMISTRY ORDERABLES Performing Organization Address City/[facility]/ZIP Code Phon e Number [address] (ABNORMAL) Basic Metabolic Panel (non-fasting) (06/26/2015 5:30 AM EDT) athologist Signature Glucose Lvl 108 65 - 199 [facility] mg/dL [facility] LABORATORY Comment: Diabetes: >=200 mg/dL plus symp toms BUN 9 (L) 10 - 20 mg/dL [facility] LABORATORY Creatinine 0.85 0.80 - 1.50 mg/dL [facility] LABORATORY Comment: Please note that the pediatric reference intervals supplied above were not validated at [facility]. Results from pediatri c patients should be interpreted in conjunction to the patient's age, height and muscle mass. Sodium 141 135 - 145 mmol/L [facility] LABORATORY Potassium 3.6 3.5 - 5.0 mmol/L [facility] LABORATORY Comment: Please note: ??Patients with WBC >100,00 0 may have falsely elevated Potassium levels. ??For accurate Potassium quantif ication in these patients send serum separator tube (gold top) for subsequent determinations. ??Contact the Clinical Chemistry Laboratory if there are any qu estions. Chloride 107 98 - 107 mmol/L [facility] LABORATORY CO2 19 (L) 22 - 31 mmol/L [facility] LABORATORY Anion Gap 15 5 - 15 mmol/L [facility] LABORATORY Calcium 7.1 (L) 8.5 - 10.5 mg/dL [facility] LABORATORY Estimated GFR >60 >=[address] [facility] LABORATORY Comment: This estimated GFR (eGFR) value [...] the following links into your internet browser. http://iMapData/DHnkdep http://iMapData/DHMCnkf Specimen Anatomical Collection Method Collection Time Receive d Time (Source) Location / / Volume Laterality Blood specimen Venous Draw / 06/26/2015 5:30 AM 2015 5:37 (specimen) Unknown EDT AM EDT Resulting Agency Comment Spec In Lab Yoan Vera II, MD CHEMISTRY ORDERABLES Performing Organization Address City/State/[place] [address] (ABNORMAL) Cardiac Enzymes (06/26/2015 5:30 AM EDT) P athologist Signature Troponin-T 5.13 (H) <=0.03 [facility] ng/mL [facility] LABORATORY Comment: 0.03 ng/mL: Represents the [...] consensus document of the Joint Society of Cardiology/[place] College o f Cardiology Committee for the redefinition of myocardial infarction. ? ?Journal of the [place] College of Cardiology 2000; 36: 959-969] CK, Total 1,254 (H) 0 - 200 unit/L [facility] LABORATORY Specimen Anatomical Collection Method Collection Time Receive d Time (Source) Location / / Volume Laterality Blood specimen 06/26/2015 5:30 AM 016 5:36 (specimen) EDT AM EDT Resulting Agency Comment Spec In Lab Yoan Vera II, MD CHEMISTRY ORDERABLES Performing Organization Address City/State/[place] [address] CARDIAC CATHETERIZATION (06/26/2015 4:31 AM EDT) Anatomical Region Laterality Modality Other Specimen (Source) Anatomical Location Collection Method / Collectio n Time Received Time / Laterality Volume Narrative 06/26/2015 10:15 AM EDT ?[facility] ? Cardiac Cathete rization/Intervention Report ? Patient Name: Jose M Garibay. ? Procedure Date: 06/26/2015 ? A #: [id number] ? Primary Physician: [place], Yoan W ? Case #: [id number] ? File Name: [id number] ? Catheterization Order Number: [id number] ? [facility] ? Final Report [place], [place] ? Patient Name: ? Jose M M. Augustoin sfield ? ID#: ?[id number] ? : ?1955 ? Procedure Date: ? June 26, 2015 ? Case #: ? [id number] ? Room: ? 5 ? Case Physician: ? Yoan W Nil es, M.D. ?Start: ?02:45 ? Admission: ??06/26/2015 ? Referring ? Yara peck M.D. ? Physicians: ?Sami Cardozo M.D. ? Procedures: ?* Coronary Angiography ?* Left Heart Catheterization ?* Coronary Stent Insertion ?* Coronary Embolic Protection/T hrombectomy ? Pre Case Status: ?These procedures were performed on an emergent basis. ? History ?Jose M Garibay is a 59 ye ar old man. He is status post an acute ST ?elevation myocardial infarction . The patient also has a history of an ?abnormal EKG. Prior to the init iation of this procedure, the patient was ?designated as ASA Class IV. ? Patient Status at Catheterization: ?The patient presented with: ST- Elevation [place] (STEMI) or equivalent (w/i 7 ?days). [place] [employer] angina class was IV. No [...] culprit lesion. Vessel flow pre ? intervention nina renteria ARELI 0. ? Thrombectomy nina s accomplished through a 6 Fr JR 4 guide ? utilizing a Pro nto V4. ? Stent insertion was accomplished through a 6 Fr. JR 4.0 guide. ?The lesion nina renteria predilated with a 2.50mm APEX 12 MM balloon ? with a maximum inflation pressure of 15 atmospheres. ??A ? premounted 2.50 x 23 mm Xience Alpine (LILLIAN) was deployed with ? a maximum infla tion pressure of 13 atmospheres. ??Following ? stent deploymen t, the lesion was dilated using a 3.00mm NC ? TREK 15 MM ball oon with a maximum inflation pressure of 16 ? atmospheres. ? Another stent i nsertion was accomplished through a 6 Fr. JR 4 ? guide. ??A beni ounted 3.50 x 12 mm Xience Alpine (LILLIAN) was ? deployed with a maximum [...] mg PO admin istered prior to the farm laborer. Continue ?ASA 81 mg po daily, clopidogrel 75 mg po daily x 12 mo. ?The attending physician was endy t for the entire procedure. ?Dr. Yoan [...] note might be different from the original. [facility] Cardiac Catheterization/Intervention Re port Patient Name: Jose M GaribayBob Procedure Date: 06/26/2015 A #: [id number] Primary Physician: Yoan Vera Case #: [id number] File Name: [id number] Catheterization Order Number: [id number] [facility] Final Report [place], [place] Patient Name: Jose M Garibay ID#: [id number] : 1955 Procedure Date: June 26, 2015 [...] an acute ST elevation myocardial infarction. The pa tient also has a history of an abnormal EKG. Prior to the initiation o f this procedure, the patient was designated as ASA Class IV. Patient Status at Catheterization: The patient presented with: ST-Elevatio n [place] (STEMI) or equivalent (w/i 7 days). [place] [employer] angina class was IV. No [...] 6 Fr Perclose was deployed at the [facility] femoral artery access site. This device was [...] Clopidogrel 300 mg PO administered in the farm laborer.Clopidogrel 300 mg PO administered prior to the farm laborer. Continue ASA 81 mg po daily, clopidogrel [...] 468 ms MUSE SYSTEM (Bezet) Calculated P Causey 47 degrees MUSE SYSTEM Calculated R Causey 4 degrees MUSE SYSTEM Calculated T Causey 13 degrees MUSE SYSTEM INTERPRETATION Normal sinus [...] SYSTEM documented in this encounter Visit Diagnoses Diagnosis STEMI (ST elevation myocardial infarctio n) - Primary Acute myocardial infarction, unspecified site, episode of care unspecified ST elevation myocardial infarction (STEM I) of inferior wall Acute myocardial infarction of other inf erior wall, episode of care unspecified documented in this encounter Admitting Diagnoses Diagnosis STEMI (ST elevation myocardial infarctio n) Acute myocardial infarction, unspecified site, episode of care unspecified documented in this encounter Administered Medications Inactive Administered Medications - up to 3 most recent administrations Medication Order MAR Action Action Date Dose Rate Site acetaminophen (TYLENOL) tablet 650 Given 06/26/2015 7:02 AM EDT 650 mg mg 650 mg, Oral, EVERY 6 HOURS PRN, Starting on 06/26/15 at 0515, Until 06/26/15 at 0914, Pain, Mild Pain, Maximum dose of acetaminophen is 4000 mg from all sources in 24 hours., Routine acetaminophen (TYLENOL) tablet 650 mg Given 06/27/2015 1:41 AM EDT 650 mg 650 mg, Oral, EVERY 4 HOURS PRN, Starting on 06/26/15 at 1246, Until 06/28/15 at 1725, Pain, Maximum dose of acetaminophen is 4000 mg from all sources in 24 hours., Routine Given 06/26/2015 12:59 PM EDT 650 mg aspirin EC tablet 81 mg Given 06/28/2015 9:23 AM EDT 81 mg 81 mg, Oral, DAILY, First dose on 06/27/15 at 0900, Until Discontinued, Routine Given 06/27/2015 8:47 AM EDT 81 mg atorvastatin (LIPITOR) tablet 80 mg Given 06/27/2015 5:48 PM EDT 80 mg 80 mg, Oral, EVERY EVENING, First dose on 06/26/15 at 0615, Until Discontinued, Routine Given 06/26/2015 8:21 PM EDT 80 mg Given 06/26/2015 6:01 AM EDT 80 mg calcium carbonate (TUMS) chewable tablet Given 06/26/2015 6:01 A M EDT 1,000 mg 500-1,000 mg 500-1,000 mg, Oral, EVERY 4 HOURS PRN, Starting on 06/26/15 at 0546, Until 06/28/15 at 1725, Heartburn, Give 500 mg (1 tablet) for mild to moderate heartburn. Give 1,000 mg (2 tablets) for severe heartburn., Routine clopidogrel (PLAVIX) tablet 75 mg Given 06/28/2015 9:23 AM EDT 75 mg 75 mg, Oral, DAILY, First dose on 06/27/15 at 0900, Until Discontinued, Routine Given 06/27/2015 8:47 AM EDT 75 mg lisinopril (PRINIVIL;ZESTRIL) tablet 10 mg Given 06/28/2015 9:23 AM EDT 10 mg 10 mg, Oral, DAILY, First dose (after last modification) on 06/26/15 at 0630, Until Discontinued, Routine Given 06/27/2015 8:47 AM EDT 10 mg Given 06/26/2015 6:24 AM EDT 10 mg magnesium sulfate 2 g in sterile water 50 Given 06/26/2015 8 :23 AM EDT 2 g 25 mL/hr mL 2 g, Intravenous, ONCE, 1 dose, On [facility] 06/26/15 at 0815, Administer over 120 Minutes meTOPROLOL (LOPRESSOR) tablet 12.5 mg Given 06/26/2015 6:00 AM EDT 12.5 mg 12.5 mg, Oral, EVERY 6 HOURS SCHEDULED, First dose on 06/26/15 at 0615, Until Discontinued, Hold for SBP < 100 or HR < 60, Routine meTOPROLOL succinate (TOPROL-XL) XL tablet Given 06/28/2015 11:55 AM EDT 100 mg 100 mg 100 mg, Oral, DAILY, First dose on 06/28/15 at 1200, Until Discontinued, DO NOT CRUSH OR OPEN, Routine meTOPROLOL tartrate (LOPRESSOR) tablet 2 5 mg Given 06/28/2015 5:37 AM EDT 25 mg 25 mg, Oral, EVERY 6 HOURS SCHEDULED, First dose (after last modification) on [facility] 06/26/15 at 1315, Until Discontinued, Hold for SBP < 100 or HR < 60, Routine Given 06/27/2015 11:35 PM EDT 25 mg Given 06/27/2015 5:48 PM EDT 25 mg nitroGLYcerin (NITROSTAT) SL tablet 0.4 mg Given 06/26/2015 6:21 AM EDT 0.4 mg 0.4 mg, Sublingual, EVERY 5 MIN PRN, Starting on 06/26/15 at 0515, Until Sun06/28/15 at 1725, Chest pain, May repeat every 5 minutes for a total of three doses. Notify provider if chest pain not relieved with nitroglycerin. Do not administer nitroglycerin if the patinet has received or taken phosphodiesterase (PDE-5) inhibitors such as sildenafil, tadalafil or vardenafil within the last 24 to 72 hours., Recovery (Recovery-Hospital Unit), Routine perflutren protein-A microspheres (OPTISON) Given 06/01 1:33 PM EDT 0.2 mLs 0.22 mg/mL injection 0.2 mL 0.2 mL, Intravenous, ONCE PRN, 1 dose, Starting on 06/26/15 at 1333, Until 06/26/15 at 1333, for enhancement of sub-optimal echo images, Echo Lab (Intra-Procedure), Routine potassium chloride (K-DUR/KLOR-CON) extended Given 10:52 AM EDT 20 mEq release tablet 20 mEq 20 mEq, Oral, EVERY 3 HOURS, 2 doses, First dose on 06/26/15 at 0815, Last dose on 06/26/15 at 1115, Routine Given 06/26/2015 8:23 AM EDT 20 mEq sodium chloride 0.45% Rate/Dose Verify 06/26/2015 12:00 PM 75 mL/hr 75 mL/hr infusion EDT 75 mL/hr, Intravenous, CONTINUOUS, Starting on 06/26/15 at 0545, Until 06/26/15 at 1144, Recovery (Recovery-Hospital Unit) Rate/Dose Verify 06/26/2015 10:00 AM EDT 75 mL/hr 75 mL/hr Rate/Dose Verify 06/26/2015 8:00 AM EDT 75 mL/hr 75 mL/hr sodium chloride 0.9 % flush 5 mL Given 06/26/2015 8:24 AM EDT 5 mLs 5 mL, Intravenous, 2 TIMES DAILY, First dose on 06/26/15 at 0900, Until Discontinued, Routine documented in this encounter Active and Recently Administered Medications Times are shown in EDT. Scheduled Medication Order 06/26/2015 06/27/2015 06/28/2015 aspirin EC tablet 81 mg 0847 (Given - Provider: Genie Henry, RN) 09 (Given - Provider: Nayana Queen, JONEL) 81 mg, Oral, DAILY, First dose on Sun at 0900, Until Discontinued, Routine atorvastatin (LIPITOR) tablet 80 mg 06 (Given - Prov ider: Tracey Tan RN)2020 (Given - Provider: Genie Terry RN - Comment: missing dose) 174 (Given - Provider: Genie Henry RN) 80 [...] 10 mg 0624 (Given - Provider: Tracey Tan, RN) 0847 (Given - Provider: Genie Henry RN) 0923 (Given - Provider: Nayana Queen RN) 10 mg, Oral, DAILY, First dose on [...] 100 mg 1155 (Given - Provider: Nayana Queen RN) 100 mg, Oral, DAILY, First dose on Mon at 1200, Until Discontinued, DO NOT CRUSH OR OPEN, Routine meTOPROLOL tartrate (LOPRESSOR) tablet 25 mg (CANCELED ) 1259 (Given - Provider: Leslee Fong RN)1841 (Given - Provider: Nilam Mendenhall, JONEL)2318 (Given - Provider: Genie Terry, JONEL) 0637 (Given - Provider: Genie Terry RN )1157 (Given - Provider: Genie Henry, RN)1748 (Given - Provider: Genie Henry RN)2335 (Given - Provider: Brendan Paul, JONEL) 0537 (Given - Provider: Brendan Paul RN) [...] injectio n (CANCELED) 0340 (Given - Provider: Yona Vera II, MD)0355 (Given - Provider: Yoan Vera II, MD) ONCE PRN, Starting 06/26/15 at 0355, Until 06/26/15 at 0430, Intra- Operative (Intra-Procedure), Routine nitroGLYcerin (NITROSTAT) SL tablet 0.4 mg 0621 (Given - Provider: Tracey Tan, JONEL) 0.4 mg, Sublingual, EVERY 5 MIN PRN, [...] Routine documented in this encounter Care Teams Glove Former Relationship Specialty Start Date End Date Kavon Lopez MD PCP - General General Internal Medicine 06/27/15 documented as of this encounter
--- OUTSIDE RECORDS SUMMARY | 2022-01-06 01:47 | XMS_ITS | Encounter Summary ---
:1955 Author Organization [facility] [address] Care Team Providers Name Role Phone Yara Gomez MD Primary Care Provider Encounter Details Date Type Department Care Team Description 06/26/2015 Hospital Encounter Radiology Library at [facility], [place] [address] Social History Tobacco Use Types Packs/Day Years [...] Name Priority Date/Time Associated Diagnosis Comme nts EKG 12-LEAD Routine 06/26/2015 5:57 AM Results f or this EDT procedure are i n the results section. EKG 12-LEAD Routine 06/26/2015 4:22 AM Results f or this EDT procedure are i n the results section. FILM LIBRARY Routine 06/26/2015 12:00 AM Pain Results for this STORAGE ONLY DX EDT procedure ar e in CHEST the results section. documented in this encounter Results EKG 12 Lead (06/26/2015 5:57 AM EDT) Component Value Ref Range Test Analysis Performed Pathologis t Method Time At Signature Ventricular rate 86 BPM MUSE SYSTEM Atrial Rate 86 BPM MUSE SYSTEM P-R Interval 140 ms MUSE SYSTEM QRS Duration 72 ms MUSE SYSTEM Q-T Interval 392 ms MUSE SYSTEM QTC Calculated 469 ms MUSE SYSTEM (Bezet) Calculated P [place] 47 degrees MUSE SYSTEM Calculated R [place] 8 degrees MUSE SYSTEM Calculated T [place] 35 degrees MUSE SYSTEM INTERPRETATION Normal sinus rhythm MUSE SYSTEM Inferior infarct (cited on or before 26-JUN-2015) When compared with ECG of 26-JUN-2015 04:22, No significant change was found Confirmed by MD Asael, Ancelmo ([id number]) on 06/28/2015 9:40:48 A M Specimen Anatomical Collection Method Collection Time Receive d Time (Source) Location / / Volume Laterality 06/26/2015 5:57 AM 6 9:40 EDT AM EDT Unknown ECG ORDERABLES Performing Organization Address City/State/ZIP Code Phon e Number MUSE SYSTEM EKG 12 Lead (06/26/2015 4:22 AM EDT) Component Value Ref Range Test Analysis Performed Pathologis t Method Time At Signature Ventricular rate 72 BPM MUSE SYSTEM Atrial Rate 72 BPM MUSE SYSTEM P-R Interval 146 ms MUSE SYSTEM QRS Duration 78 ms MUSE SYSTEM Q-T Interval 418 ms MUSE SYSTEM QTC Calculated 457 ms MUSE SYSTEM (Bezet) Calculated P [place] 41 degrees MUSE SYSTEM Calculated R [place] -4 degrees MUSE SYSTEM Calculated T [place] 18 degrees MUSE SYSTEM INTERPRETATION Normal sinus rhythm MUSE SYSTEM Inferior infarct (cited on or before 26-JUN-2015) When compared with ECG of 26-JUN-2015 04:21, No significant change was found Confirmed by MD Asael, Ancelmo ([id number]) on 06/28/2015 9:40:42 A M Specimen Anatomical Collection Method Collection Time Receive d Time (Source) Location / / Volume Laterality 06/26/2015 4:22 AM 6 9:40 EDT AM EDT Unknown ECG ORDERABLES Performing Organization Address City/State/ZIP Code Phon e Number MUSE SYSTEM Film Library- Storage only DX Chest (06/26/2015 12:00 AM EDT) Specimen (Source) Anatomical Location Collection Method / Collectio n Time Received Time / Laterality Volume Narrative RAD - 06/26/2015 1:45 AM EDT See PACS for result report. Dr Donnelly [facility] IMG FILM LIBRARY ORDERABLES Performing Organization Address City/State/ZIP Code Phon e Number [place], [place] documented in this encounter Visit Diagnoses Diagnosis Pain Generalized pain documented in this encounter Care Teams Business Process Analyst Relationship Specialty Start Date End Date Yara Gomez MD PCP - General 12/31/12 06/26/[address] [place] [address] documented as of this encounter
--- OUTSIDE RECORDS SUMMARY | 2022-01-06 01:47 | XMS_ITS | Encounter Summary ---
:1955 Author Organization [facility] [address] Care Team Providers Name Role Phone Yadira Bruno MD Primary Care Provider Reason for Visit Reason Comments Skin Check Encounter Details Date Type Department Care Team Description 08/02/2012 Office Visit Dermatology Emeka Laws, Seborrheic keratosis (Primar y Dx); [address] [facility] [address] [place], [place] DERMATOLOGY [address] [place] [address] [phone] (Wo rk) Social History Tobacco Use Types Packs/Day Years Used Date Never Smoker Sex Assigned at Date Recorded Not on file documented as of this encounter Progress Notes Emeka Laws MD - 08/02/2012 8:34 AM EDT Problem: Skin lesion of concern. The patient follows up after last being seen in 2005. He has some lesions of concern. He has a few lesions on the scalp, one on the right nasal sidewall, and one behind his right ear. Patient is referred back to see me by Dr. Theo Lopez. Physical examination reveals a pleasant 56-year-old gentleman who has a quarter size seborrheic keratosis present on the mid central parietal scalp. His hair is cut very short to allow this to be seen. He has a 4 mm seborrheic keratosis behind his right ear. He has an early solar lentigo on the right nasal sidewall. Otherwise, examination of the head and the neck, chest and back, hands, arms, and forearms is benign. Assessment and Plan: 1. Seborrheic keratoses. a. Patient reassured about seborrheic keratosis of scalp and behind the ear. 2. Solar lentigo, right nasal sidewall. a. Patient reassured about this. c. Patient also reassured about the remainder of benign skin examination. d. Return to clinic here p.r.n. Note: At patient's request, the jose maria-k behind his right ear was treated lightly with LN2 today. Patient did not want it removed with a shave biopsy, because he feels that all skin cancers are caused by viruses and they should be removed by means other than surgery. COPY: Theo Lopez M.D. documented in this encounter Plan of Treatment Not on filedocumented as of this encounter Visit Diagnoses Diagnosis Seborrheic keratosis - Primary Other seborrheic keratosis Solar lentigo Other dyschromia documented in this encounter Care Teams Block Cutter Relationship Specialty Start Date End Date Yadira Bruno MD PCP - General 08/02/12 12/30/[address] [facility] [address] [place] [address] documented as of this encounter
[2022-01-06 16:54] LABS: BUN 13 mg/dL (7-18); Calcium 9.1 mg/dL (8.5-10.1); Calculated LDL 77 mg/dL (<100); Chloride 105 mmol/L (98-107); Cholesterol 134 mg/dL (<200); Estimated GFR 84.05 (mL/min/1.73m2); Glucose 106 mg/dL (74-106); HDL Cholesterol 37 mg/dL (40-60); Potassium 4.2 mmol/L (3.5-5.1); Sodium 142 mmol/L (136-145); Triglyceride 100 mg/dL (<150)
[2022-01-09 10:36] LABS: PSA, Screening 0.4 ng/mL (<=4.5)
== END 2022-01-06 01:40 | disposition home or self-care (01) ==
LOC: LBO 01:39
PROVIDERS: PCP Nurse Practitioner Family; Visit Provider Nurse Practitioner Family
DX: Z13.220 Encounter for screening for lipoid disorders (principal); Z12.5 Encounter for screening for malignant neoplasm of prostate; I10 Essential (primary) hypertension
CPT/HCPCS: 36415; 80048; 80061; 84153